=== PATIENT | female | born 1975 | race Caucasian/White ===

== ENCOUNTER → 2018-01-06 15:41 | Outpatient (CLI) | payer BC, SELFPAY ==
--- NOTE | 2018-01-06 | XR_ITS ---
XR knee RT 3V HISTORY: ITS.REASON: PAIN ORDERING PHYSICIAN: Brandy Garcia PATIENT AGE: 42 years COMPARISON: None FINDINGS: No fracture or dislocation. No lytic or blastic change. Normal mineralization. There is minimal spurring along the superior aspect of the patella. Subcortical cystic changes are present at the tibial spines. IMPRESSION: 1. Minimal spurring along the patella 2. Subcortical cystic changes at the interspinous region of the proximal tibia nonspecific
== END ==
PROVIDERS: PCP Nurse Practitioner; Visit Provider Nurse Practitioner
DX: M25.561 Pain in right knee (principal)
CPT/HCPCS: 73562

== ENCOUNTER 2018-02-19 16:00 | Outpatient (RCR) | payer BC, SELFPAY ==
--- NOTE | 2018-01-31 14:52 | HMH.PTOPEV ---
PT Outpatient Evaluation Rehab PT Outpatient Evaluation Start: 01/31/18 14:09 Freq: Status: Active Protocol: Document 01/31/18 14:37 SANDEEPPAMELA (Rec: 01/31/18 14:52 SANDEEPREYNAZOILA [id number]) Electronically Signed By Jordan Calzada, PT 01/31/18 14:37 Outpatient Therapy Subjective History Subjective History Pt is a 42 year old female presenting to outpatient PT with reports of R knee pain starting 01/04/18 after taking a misstep at work. Pain started mildly and progressively got worse. She visited PCP and was prescribed diclofenac that has provided some relief. She most recently experienced a pop in the knee with a closed chain twisting motion and her knee gave out. Comorbidities: increased BMI, diabetes, HTN with PVC's, cholecystectomy. Chief Complaint Pain Stiff Clicks Swelling Weakness Symptom Type Ache Sharp Symptoms Relieved By Rest/Positioning Ice Prescription Meds Symptoms Aggravated By Standing Bending/Stooping Physical Activity Twisting Walking Prior Functional Limitations None Current Functional Limitations Lifting Housework Standing Squatting Recreation Activity Walking Stairs Bending/Stooping Symptom Description Constant but Variable Level of pain today (0-10) 3 Pain scale - at its best (0-10) 2 Pain scale - at its worst (0-10) 7 Hip/Knee Eval Gait Observation General Gait Pattern Observation Antalgic Gait Assistive Device Assistive Devices None / NA Palpation Tenderness right Knee Palpation Finding Tenderness Knee Palpation Overall Comment patellar tendon, medial joint line, lateral distal hamstring , pes anserene MMT left Hip Strength Reason Not Measured WFL Knee Str
== END 2018-02-19 16:01 | disposition home or self-care (01) ==
LOC: PT 16:00
PROVIDERS: Family Provider Family Medicine; PCP Nurse Practitioner; Visit Provider Nurse Practitioner
DX: M23.351 Other meniscus derangements, posterior horn of lateral meniscus, right knee (principal)
CPT/HCPCS: 97010; 97014; 97033; 97035; 97110; 97163; G0283

== ENCOUNTER → 2018-03-06 14:21 | Outpatient (CLI) | payer BC, SELFPAY ==
--- NOTE | 2018-03-06 14:30 | MR_ITS ---
MR knee RT wo/w con HISTORY: Right knee pain, pain and swelling medially. Pain when walking ITS.REASON: INTERNAL DERANGEMENT OF RIGHT KNEE INVOLVING POSTERIOR HORN, PAIN AND SWELLING MEDIALLY ORDERING PHYSICIAN: Brandy Garcia PATIENT AGE: 43 years Comparison: 01/13/2018 TECHNIQUE: Standard multiplanar multiecho sequences are performed without and with gadolinium enhancement. FINDINGS: Images are somewhat limited having to be performed with the body coil secondary to patient's body habitus. The cruciate ligaments and collateral ligaments appear intact. The quadriceps tendon and patellar tendon appears intact. There is some areas of increased signal T2 signal involving the distal aspect of the quadriceps and the mid and distal aspect of the popliteal tendon which could be due to areas of tendinopathy/tendinosis. There is some increased signal involving the posterior horn of the medial meniscus does not appear to communicate to the meniscal particular surface and does not meet strict MRI criteria for meniscal tear. There is mild to moderate lateral patellar subluxation. The patellofemoral ligaments appear intact. There is a moderate sized knee joint effusion mainly in the suprapatellar region. There is a complex cystic lesion which involves the proximal aspect of the tibia centrally. This is iso to hypointense on T1 and hyperintense on T2 with internal septations. This demonstrates contrast enhancement. The lesion is fairly well circumscribed however the superior aspect of the lesion protrudes into the knee joint on the cortex of the proximal tibia. This lesion measures 2.8 cm transverse, 2.4 cm AP, and 2.2 cm cephalad to caudad. The superior extension involves the tibial spine region and posterior to the tibial spine projecting into the knee joint between the tibial spines and the tibial insertion of the posterior cruciate ligament. IMPRESSION: 1. 2.8 x 2.4 x 2.2 cm lytic lesion of the proximal tibia centrally with extension superiorly into the knee joint. This is fairly well-circumscribed with well-defined margins inferiorly and demonstrates contrast enhancement. There are some internal septations. 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 Differential diagnosis would include infection, geode, chondrosarcoma or aneurysmal bone cyst or metastatic lesion. Orthopedic consult recommended 2. Lateral patellar subluxation with knee joint effusion. No internal derangement
--- NOTE | 2018-03-06 16:06 | HMH.ITSHM ---
LISINOPRIL BISOPROLOL METFORMIN LEXAPRO TRISPRINTEC
== END ==
PROVIDERS: Family Provider Family Medicine; PCP Nurse Practitioner; Visit Provider Nurse Practitioner
DX: M23.351 Other meniscus derangements, posterior horn of lateral meniscus, right knee (principal)
CPT/HCPCS: 73723; A9576

== ENCOUNTER 2018-11-14 13:17 | Observation (INO) ==
--- NOTE | 2018-11-14 13:33 | Emergency Department Note ---
ED Disposition Clinical Impression: Pulmonary emboli Qualifiers: Pulmonary embolism type: unspecified Chronicity: acute Acute cor pulmonale presence: with acute cor pulmonale Qualified Code(s): I26.09 - Other pulmonary embolism with acute cor pulmonale Disposition: Admitted As Inpatient Condition on Discharge: Good - Critical Care Critical Care Time: No Attestation: On , the high probability of a clinically significant, sudden or life threatening deterioration of the following system(s) required my full and direct attention, intervention and personal management. The time I documented below is in addition to time spent performing reported procedures but includes the following listed in this critical care notation. Medical Decision Making - Medical Records Medical records reviewed: Yes: I reviewed the patient's medical records. - Merrick Inquiry Pt receiving controlled substance: No Vital Signs: 11/14/18 13:23 11/14/18 15:08 11/14/18 15:40 Temperature 98.7 F Temperature Source Oral Pulse Rate [Left Radial] 58 L 68 57 L Respiratory Rate 18 18 18 Blood Pressure [Left Arm] 132/87 106/70 L 106/49 L Blood Pressure Mean [Left Arm] 102 82 68 Blood Pressure Source [Left Arm] Automatic Cuff Automatic Cuff Automatic Cuff Blood Pressure Position [Left Arm] Sitting Sitting 02 Sat by Pulse Oximetry 98 98 98 Oxygen Delivery Method Room Air Room Air Room Air 11/14/18 17:37 Temperature Temperature Source Pulse Rate [Left Radial] 63 Respiratory Rate 18 Blood Pressure [Left Arm] 138/52 L Blood Pressure Mean [Left Arm] 80 Blood Pressure Source [Left Arm] Automatic Cuff Blood Pressure Position [Left Arm] Sitting 02 Sat by Pulse Oximetry 97 Oxygen Delivery Method Room Air - Lab Data Lab results reviewed: Yes: I reviewed the patient's lab results. Lab Results 11/14/18 13:51: WBC 5.7, RBC 4.49, Hgb 12.3, Hct 38.0, MCV 84.6, MCH 27.3, MCHC 32.3, RDW 13.5, Plt Count 235, MPV 7.8, Neut % (Auto) 57.7, Lymph % (Auto) 35.9, [place] % (Auto) 4.8, Eos % (Auto) 1.1, Baso % (Auto) 0.5, Neut # (Auto) 3.3, Lymph # (Auto) 2.0, [place] # (Auto) 0.3, Eos # (Auto) 0.1, Baso # (Auto) 0.0 11/14/18 13:51: Sodium 139, Potassium 4.0, Chloride 103, Carbon Dioxide 27, Anion Gap 13.0, BUN 14, Creatinine 0.80, Estimated Creat Clear 79, Estimated GFR 79, Est GFR ( Amer) 95, Glucose 134 H, Calcium 8.9, Total Bilirubin 0.4, AST 13 L, ALT 19, Alkaline Phosphatase 58, Troponin I < 0.02, Total Protein 7.5, Albumin 3.3 L, Globulin 4.2 H, Albumin/Globulin Ratio 0.8 L 11/14/18 13:51: Serum HCG, Qual Negative 11/14/18 13:51: D-Dimer 2150 H* 11/14/18 13:51: B-Natriuretic Peptide 152 H 11/14/18 13:51: PT 10.0, INR 0.96, APTT 24.3 Result diagrams: 11/14/18 13:51 11/14/18 13:51 Orders (Tests/Meds): ED MEDICATIONS Generic Name Dose Route Start Last Admin Trade Name Freq PRN Reason Stop Dose Admin Heparin Sodium/Dextrose 500 mls @ 26 mls/hr 11/14/18 17:30 11/14/18 17:32 Heparin 25,000 Units In D5w 500ml Premix IV 12/14/18 17:29 26 mls/hr .[id number] BE Administration 1,300 UNITS/HR Discontinued Medications Generic Name Dose Route Start Last Admin Trade Name Freq PRN Reason Stop Dose Admin Enoxaparin Sodium 120 mg 11/14/18 16:48 11/14/18 17:39 Lovenox 120mg/0.8ml Syringe SQ 11/14/18 16:49 Not Given ONCE ONE Heparin Sodium (Porcine) 5,000 unit 11/14/18 16:59 11/14/18 17:31 Heparin Sodium 5,000 Units/Ml Vial IV 11/14/18 17:00 5,000 unit ONCE ONE Administration Heparin Sodium/Dextrose 500 mls @ 20 mls/hr 11/14/18 17:00 11/14/18 17:39 Heparin 25,000 Units In D5w 500ml Premix IV 12/14/18 16:59 Not Given .Q25H BE 1,000 UNITS/HR Sodium Chloride 50 ml 11/14/18 16:22 11/14/18 16:24 Rad-Ns 50ml Vial IV 11/14/18 16:23 50 ml ONCE ONE Administration Sodium Chloride 10 ml 11/14/18 16:22 11/14/18 16:24 Rad-Saline Flush 10ml Syringe IV 11/14/18 16:23 10 ml ONCE ONE Administration - CT Data CT Scan: Chest Time Received: 17:42 (bilateral PE with right heart strain) ED CT Reviewed: Yes: I have viewed the radiologist's interpretation Preliminary Findings: Abnormal - US Data US Images: Lower Extremity ED US Reviewed: Yes: I have viewed radiologist's interpretation Findings Narrative: +dvt right lower extremity - ECG Data Tracing #1 I reviewed this ECG and interpreted as documented below: Normal Sinus Rhythm: Yes (pvc, no stemi) Medical Decision Narrative: admit d/w Dr Talbot, iv heparin protochol w/ pharmacy dosing initiated General Adult HPI - General Stated complaint: ankle swelling, soa Time Seen by Provider: 11/14/18 13:30 Source of Information: Patient - History of Present Illness HPI narrative: mild to mod marshall and edema lower legs for few days with shortness of breath, no pain, no fever, no injury, not dizzy, speech fluent - Related Data Home Medications Medication Instructions Recorded Confirmed Bisoprol/Hydrochlorothiazide 5 mg PO DAILY 01/13/18 11/14/18 [Bisoprolol-Hctz 5-6.25 mg Tab] Escitalopram Oxalate 10 mg PO DAILY 01/13/18 11/14/18 Lisinopril [Lisinopril 5mg Tablet] 5 mg PO DAILY 01/13/18 11/14/18 Metformin HCl [Metformin HCl ER] 750 mg PO DAILY 01/13/18 11/14/18 Norgestimate-Ethinyl Estradiol 1 mg PO DAILY 01/13/18 11/14/18 [Tri-Linyah Tablet] Aspirin [Aspirin 325mg Tab] 325 mg PO DAILY 11/14/18 11/14/18 Cholecalciferol (Vitamin D3) 5,000 unit PO DAILY 11/14/18 11/14/18 [Vitamin D3] Omeprazole [Omeprazole 20mg 20 mg PO DAILY 11/14/18 11/14/18 Capsule] Allergies Allergy/AdvReac Type Severity Reaction Status Date / Time From [facility] Allergy Unknown Uncoded 06/25/17 14:30 [facility] History - Hepatitis A Screen Attestation statement:: This patient has been screened for Hepatitis A risk factors. Medical History: Reports:: Diabetes Mellitus Type 2 - Social History Alcohol Intake: never ROS Obtained: Yes Systems reviewed as appropriate & no additional complaints - Constitutional Constitutional: Denies fever(s) - Eyes Eyes: Denies change in vision - ENT Ears, Nose, Mouth, and Throat: Denies neck pain - Cardiovascular Cardiovascular: Denies chest pain - Respiratory Respiratory: Yes dyspnea on exertion - Gastrointestinal Gastrointestingal: Denies: abdominal pain - Musculoskeletal Musculoskeletal: Denies back pain, Denies neck pain - Integumentary/Breasts Skin/Breast: Denies rash - Neurologic Neurologic: Denies confusion, Denies unsteadiness, Denies dizziness Physical Exam - General General appearance: alert, in no apparent distress - Head Head exam: atraumatic - Eye Eye exam: Present: normal appearance - ENT ENT exam: Present: mucous membranes moist - Neck Neck exam: Present: normal inspection, full ROM - Chest Chest inspection: Present: normal inspection - Respiratory Respiratory exam: Present: normal lung sounds bilaterally - Cardiovascular Cardiovascular exam: Present: regular rate, normal rhythm - Abdominal Exam Abdominal exam: Present: soft. Absent: tenderness - Extremities Exam Extremities exam: Present: pedal edema - Back Exam Back exam: Present: normal inspection - Neurological Exam Neurological exam: Present: alert, oriented X3 - Psychiatric Psychiatric exam: Present: normal affect - Skin Skin exam: Present: warm, dry
[2018-11-14 14:15] LABS: Basophils % 0.5 % (0.1-2.0); Eosinophils # 0.1 K/mm3 (0.0-0.4); Eosinophils % 1.1 % (0.1-12.0); Hemoglobin 12.3 g/dL (12.2-16.2); Lymphocytes % 35.9 % (10-50); Mean Corpuscular HGB Conc 32.3 g/dL (31.8-35.4); Mean Corpuscular Hemoglobin 27.3 pg (27.0-31.2); Mean Corpuscular Volume 84.6 fl (81-99); Mean Platelet Volume 7.8 fl (7.4-10.4); Monocytes # 0.3 K/mm3 (0.1-1.0); Monocytes % 4.8 % (1.7-9.3); Neutrophils # 3.3 K/mm3 (1.8-7.8); Neutrophils % 57.7 % (37.0-80.0); Platelet Count 235 K/mm3 (142-424); Red Blood Count 4.49 M/mm3 (4.20-5.40); Red Cell Distribution Width 13.5 % (11.5-17.5); White Blood Count 5.7 K/mm3 (4.8-10.8)
[2018-11-14 14:21] LABS: Alanine Aminotransferase 19 U/L (12-78); Albumin Level 3.3 gm/dL (3.4-5.0); Albumin/Globulin Ratio 0.8 (1.1-1.8); Alkaline Phosphatase 58 U/L (46-116); Aspartate Amino Transferase 13 U/L (15-37); Bilirubin,Total 0.4 mg/dL (0.2-1.0); Blood Urea Nitrogen 14 mg/dL (7-18); Calcium 8.9 mg/dL (8.5-10.1); Carbon Dioxide 27 mmol/L (21.0-32.0); Chloride 103 mmol/L (98-107); Globulin 4.2 gm/dl (1.3-3.2); Glucose 134 mg/dL (74-106); Sodium 139 mmol/L (136-145); Total Protein,Serum 7.5 gm/dL (6.4-8.2)
--- NOTE | 2018-11-14 14:45 | Non-Invasive Vascular Report ---
"Venous Exam Indications: 729.5 Pain in limb. IMPRESSIONS 1. No evidence of deep or superficial vein thrombosis involving the left lower extremity 2. Moderate deep vein thrombosis involving the right femoral vein and right popliteal vein History: Swelling of the right lower extremity. Edema of the right leg. Risk factors: Hypertension. Obese. Renal disease. 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 She received Lovenox injections for 28 days post op. After this time she was restarted on her oral contraceptives and 325 mg of Aspirin daily. Her right lower extremity has been swelling x 4 days. Patient sent to ER for DVT evaluation. Complete lower extremity venous duplex evaluation. Doppler flow study including spectral analysis, color and deshpande scale imaging. Location: Emergency department. Patient status: Emergency department. CRITICAL FINDINGS - Reported to: - Read back and verified. - 11/14/18 - 14:30 - RLE DVT in POPV, distal SFV Tables: Venous flow and imaging: + + + + |Location |Overall |Flow properties | + + + + |Right common femoral |Patent |Normal phasicity; | | | |spontaneous; normal | | | |augmentation; compressible | + + + + |Right saphenofemoral |Patent |Compressible | |junction | | | + + + + |Right profunda femoral |Patent |Compressible | + + + + |Right femoral |Totally occluded|Noncompressible | + + + + |Right greater saphenous |Patent |Normal phasicity; | | | |spontaneous; normal | | | |augmentation; compressible | + + + + |Right popliteal |Totally occluded|Noncompressible | + + + + |Right posterior tibial |Patent |Compressible | + + + + |Right peroneal |Patent |Compressible | + + + + |Right gastrocnemius |Totally occluded|Noncompressible | + + + + |Right soleal |Totally occluded|Noncompressible | + + + + |Left common femoral |Patent |Normal phasicity; | | | |spontaneous; normal | | | |augmentation; compressible | + + + + |Left saphenofemoral |Patent |Compressible | |junction | | | + + + + |Left profunda femoral |Patent |Compressible | + + + + |Left femoral |Patent |Normal phasicity; | | | |spontaneous; normal | | | |augmentation; compressible | + + + + |Left greater saphenous |Patent |Normal phasicity; | | | |spontaneous; normal | | | |augmentation; compressible | + + + + |Left popliteal |Patent |Normal phasicity; | | | |spontaneous; normal | | | |augmentation; compressible | + + + + |Left posterior tibial |Patent |Compressible | + + + + |Left peroneal |Patent |Compressible | + + + + |Left gastrocnemius |Patent |Compressible | + + + + |Left soleal |Patent |Compressible | + + + + (Report amended ) Electronically signed by: Martin Pablo [id number]"
[2018-11-14 17:17] LABS: Activated Partial Thrombo Time 24.3 seconds (23.6-34.0); INR 0.96 (0.9-1.1)
--- NOTE | 2018-11-15 07:04 | H&P/Discharge Summary ---
General - General Admission date:: 11/14/18 Discharge date: 11/15/18 *Admission Date: 11/14/18 *Chief complaint: Ankle swelling and shortness of breath *History of present illness: 43-year-old female presented to the emergency department yesterday with bilateral ankle swelling right greater than left and a few days of dyspnea on exertion. 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 She subsequently underwent removal of the tumor and was nonweightbearing for 3 months. In September 2018 patient underwent another surgery to remove the rest of the tumor and feel in the bone defect with bone cement. She continued to be nonweightbearing at that time and was on Lovenox for a month which ended in the middle of October 2018. Patient was taking aspirin 325 mg a day. Over the last few days patient had noticed bilateral ankle swelling right greater than left that would not improve with elevation of the feet. She has been using a walker to ambulate and had also noticed that she was getting short of breath with exertion. She contacted her nurse practitioner at the [facility] and was instructed to go to the nearest emergency department for thrombotic work-up. Patient presented to our emergency department for work-up and was found to have right femoral and popliteal deep vein thrombosis as well as right-sided pulmonary embolism. Patient was given Lovenox in the emergency department and admitted to the floor. She was subsequently started on a heparin drip as well. Patient has not had any hypoxia. 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 in September 2018 Other Surgeries: No: Pacemaker Amputation: No Fractures: No - *Social History Educational Level: Attended College Smoking Status: Never smoker Alcohol Intake: never *Occupational Status:: employed Housing: house Household Members: spouse *Travel in the last 8 weeks: None - Psychiatric History Expresses thoughts of harming self/others: None Suicide Plan Description: No Plan Family Hx:: Diabetes, Hypertension Review of Systems - Review of Systems Review of systems:: pertinent systems reviewed and negative unless documented below - *Neurologic Denies confusion, Denies unsteadiness, Denies dizziness Exam Vital signs and Labs for Last 24 Hours: Temp Pulse Resp BP Pulse Ox 98.3 F 70 20 123/76 97 11/15/18 03:36 11/15/18 03:36 11/15/18 03:36 11/15/18 03:36 11/15/18 03:36 Laboratory Results - last 24 hr 11/14/18 13:51: WBC 5.7, RBC 4.49, Hgb 12.3, Hct 38.0, MCV 84.6, MCH 27.3, MCHC 32.3, RDW 13.5, Plt Count 235, MPV 7.8, Neut % (Auto) 57.7, Lymph % (Auto) 35.9, [place] % (Auto) 4.8, Eos % (Auto) 1.1, Baso % (Auto) 0.5, Neut # (Auto) 3.3, Lymph # (Auto) 2.0, [place] # (Auto) 0.3, Eos # (Auto) 0.1, Baso # (Auto) 0.0 11/14/18 13:51: Sodium 139, Potassium 4.0, Chloride 103, Carbon Dioxide 27, Anion Gap 13.0, BUN 14, Creatinine 0.80, Estimated Creat Clear 79, Estimated GFR 79, Est GFR ( Amer) 95, Glucose 134 H, Calcium 8.9, Total Bilirubin 0.4, AST 13 L, ALT 19, Alkaline Phosphatase 58, Troponin I < 0.02, Total Protein 7.5, Albumin 3.3 L, Globulin 4.2 H, Albumin/Globulin Ratio 0.8 L 11/14/18 13:51: Serum HCG, Qual Negative 11/14/18 13:51: D-Dimer 2150 H* 11/14/18 13:51: B-Natriuretic Peptide 152 H 11/14/18 13:51: PT 10.0, INR 0.96, APTT 24.3 11/14/18 21:53: POC Glucose 140 H 11/14/18 23:20: APTT 19.5 L 11/15/18 05:10: APTT 40.4 H D 11/15/18 05:57: POC Glucose 128 H I & O for Last 24 hours: Intake & Output 11/12/18 11/13/18 11/14/18 11/15/18 11:59 11:59 11:59 11:59 Intake Total 782.7 / 782.7 Balance 782.7 / 782.7 Weight 293 lb 3 oz Narrative: Patient is awake and alert sitting up in bed. She is in no distress. Oropharynx is moist and clear. Neck is without jugular venous distention. Lungs are clear to auscultation. Heart has a regular rate and rhythm. Abdomen is obese, soft, nontender, nondistended. Extremities are warm to the touch and there is only trace ankle edema bilaterally. No calf tenderness. Surgical incision is noted over the right medial proximal tibia. Hospital Course Hospital Course: Patient was admitted on heparin and on the morning of November 15 was transitioned to oral Eliquis with bridging via Lovenox. Patient was monitored and kept until the evening of the to receive a second dose of Lovenox. After her second dose of Lovenox on November 15 she was discharged home she will return on the morning of November 16 for a final dose of Lovenox a dose of 1 mg/kg subcu while transitioning to Eliquis. Patient will follow-up in the office on Saturday Results Labs on day of discharge: Labs from last 24 hours 11/15/18 11/15/18 11/14/18 05:57 05:10 23:20 WBC RBC Hgb Hct MCV MCH MCHC RDW Plt Count MPV Neut % (Auto) Lymph % (Auto) [place] % (Auto) Eos % (Auto) Baso % (Auto) Neut # (Auto) Lymph # (Auto) [place] # (Auto) Eos # (Auto) Baso # (Auto) PT INR APTT 40.4 H D 19.5 L D-Dimer Sodium Potassium Chloride Carbon Dioxide Anion Gap BUN Creatinine Estimated Creat Clear Estimated GFR Est GFR ( Amer) Glucose POC Glucose 128 H Calcium Total Bilirubin AST ALT Alkaline Phosphatase Troponin I B-Natriuretic Peptide Total Protein Albumin Globulin Albumin/Globulin Ratio Serum HCG, Qual 11/14/18 11/14/18 11/14/18 21:53 13:51 13:51 WBC RBC Hgb Hct MCV MCH MCHC RDW Plt Count MPV Neut % (Auto) Lymph % (Auto) [place] % (Auto) Eos % (Auto) Baso % (Auto) Neut # (Auto) Lymph # (Auto) [place] # (Auto) Eos # (Auto) Baso # (Auto) PT 10.0 INR 0.96 APTT 24.3 D-Dimer Sodium Potassium Chloride Carbon Dioxide Anion Gap BUN Creatinine Estimated Creat Clear Estimated GFR Est GFR ( Amer) Glucose POC Glucose 140 H Calcium Total Bilirubin AST ALT Alkaline Phosphatase Troponin I B-Natriuretic Peptide 152 H Total Protein Albumin Globulin Albumin/Globulin Ratio Serum HCG, Qual 11/14/18 11/14/18 11/14/18 13:51 13:51 13:51 WBC RBC Hgb Hct MCV MCH MCHC RDW Plt Count MPV Neut % (Auto) Lymph % (Auto) [place] % (Auto) Eos % (Auto) Baso % (Auto) Neut # (Auto) Lymph # (Auto) [place] # (Auto) Eos # (Auto) Baso # (Auto) PT INR APTT D-Dimer 2150 H* Sodium 139 Potassium 4.0 Chloride 103 Carbon Dioxide 27 Anion Gap 13.0 BUN 14 Creatinine 0.80 Estimated Creat Clear 79 Estimated GFR 79 Est GFR ( Amer) 95 Glucose 134 H POC Glucose Calcium 8.9 Total Bilirubin 0.4 AST 13 L ALT 19 Alkaline Phosphatase 58 Troponin I < 0.02 B-Natriuretic Peptide Total Protein 7.5 Albumin 3.3 L Globulin 4.2 H Albumin/Globulin Ratio 0.8 L Serum HCG, Qual Negative 11/14/18 13:51 WBC 5.7 RBC 4.49 Hgb 12.3 Hct 38.0 MCV 84.6 MCH 27.3 MCHC 32.3 RDW 13.5 Plt Count 235 MPV 7.8 Neut % (Auto) 57.7 Lymph % (Auto) 35.9 [place] % (Auto) 4.8 Eos % (Auto) 1.1 Baso % (Auto) 0.5 Neut # (Auto) 3.3 Lymph # (Auto) 2.0 [place] # (Auto) 0.3 Eos # (Auto) 0.1 Baso # (Auto) 0.0 PT INR APTT D-Dimer Sodium Potassium Chloride Carbon Dioxide Anion Gap BUN Creatinine Estimated Creat Clear Estimated GFR Est GFR ( Amer) Glucose POC Glucose Calcium Total Bilirubin AST ALT Alkaline Phosphatase Troponin I B-Natriuretic Peptide Total Protein Albumin Globulin Albumin/Globulin Ratio Serum HCG, Qual DS: Diagnosis - Discharge Diagnosis (1) Deep vein thrombosis Status: Acute (2) Pulmonary emboli Status: Acute Discharge Medications - Medications for Discharge Home Medication List at Discharge: No Action Metformin HCl [Metformin HCl ER] 750 mg PO DAILY Lisinopril [Lisinopril 5mg Tablet] 5 mg PO DAILY Escitalopram Oxalate 10 mg PO DAILY Bisoprol/Hydrochlorothiazide [Bisoprolol-Hctz 5-6.25 mg Tab] 5 mg PO DAILY Aspirin [Aspirin 325mg Tab] 325 mg PO DAILY Ca/D3/Mag Ox/Zinc/Drain Cleaner Plumber/Sampson/Bor [Calcium 600-D3 Plus Caplet] 1 each PO DAILY Norgestimate-Ethinyl Estradiol [Tri-Linyah Tablet] 1 mg PO DAILY Cholecalciferol (Vitamin D3) [Vitamin D3] 5,000 unit PO DAILY Omeprazole [Omeprazole 20mg Capsule] 20 mg PO DAILY Disposition Disposition: Home, Self-Care
--- NOTE | 2018-11-15 11:17 | Pharmacy Consult Notes ---
[facility] Pharmacy Heparin Dosing - Demographic Data Admission date:: 11/14/18 Date: 11/15/18 Time: 11:13 Allergies/Adverse Reactions: Allergies Allergy/AdvReac Type Severity Reaction Status Date / Time hydrocodone [From Lortab] AdvReac Unknown Verified 11/15/18 11:05 allergy reaction Height: 1.63 m Weight: 133 kg - Indication Medication therapy:: Heparin Patient Problems: Current Active Problems (Updated 11/15/18 @ 07:08 by Ryan Gallo MD) Pulmonary emboli (Acute) Deep vein thrombosis (Acute) CVA?: No Bleeding problem?: No Kidney disease?: No NM?: No Desired PTT range:: 60-80 seconds - Labs Anticoagulation Lab Results:: 11/14/18 13:51 Hgb 12.3 Hct 38.0 Plt Count 235 - Monitoring Dose Monitor 1 Date: 11/14/18 Time: 13:51 PTT Result:: 24.3 Infusion Rate:: 26 MLS/GP=6070 UNITS/HR Comment:: BASELINE PTT RIK=406 HEPARIN BOLUS 5000 UNITS GIVEN Dose Monitor 2 Date: 11/14/18 Time: 23:20 PTT Result:: 19.5 Infusion Rate:: 32 MLS/HR = 1600 UNITS/HR Comment:: HEPARIN BOLUS 5000 UNITS GIVEN Dose Monitor 3 Date: 11/15/18 Time: 05:10 PTT Result:: 40.4 Infusion Rate:: 35 MLS/HR = 1750 UNITS/HR Comment:: HEPARIN BOLUS 5000 UNITS ORDERED DRIP DC'D BY DR GALLO. CHANGED TO LOVENOX AND ELIQUIS - Core Measures Is INR > or = 2 at discharge?: No Most Recent Labs:: Laboratory Results - last 24 hr 11/14/18 13:51: WBC 5.7, RBC 4.49, Hgb 12.3, Hct 38.0, MCV 84.6, MCH 27.3, MCHC 32.3, RDW 13.5, Plt Count 235, MPV 7.8, Neut % (Auto) 57.7, Lymph % (Auto) 35.9, Ida % (Auto) 4.8, Eos % (Auto) 1.1, Baso % (Auto) 0.5, Neut # (Auto) 3.3, Lymph # (Auto) 2.0, Ida # (Auto) 0.3, Eos # (Auto) 0.1, Baso # (Auto) 0.0 11/14/18 13:51: Sodium 139, Potassium 4.0, Chloride 103, Carbon Dioxide 27, Anion Gap 13.0, BUN 14, Creatinine 0.80, Estimated Creat Clear 79, Estimated GFR 79, Est GFR ( Amer) 95, Glucose 134 H, Calcium 8.9, Total Bilirubin 0.4, AST 13 L, ALT 19, Alkaline Phosphatase 58, Troponin I < 0.02, Total Protein 7.5, Albumin 3.3 L, Globulin 4.2 H, Albumin/Globulin Ratio 0.8 L 11/14/18 13:51: Serum HCG, Qual Negative 11/14/18 13:51: D-Dimer 2150 H* 11/14/18 13:51: B-Natriuretic Peptide 152 H 11/14/18 13:51: PT 10.0, INR 0.96, APTT 24.3 11/14/18 21:53: POC Glucose 140 H 11/14/18 23:20: APTT 19.5 L 11/15/18 05:10: APTT 40.4 H D 11/15/18 05:57: POC Glucose 128 H If INR was < than 2.0 why was therapy stopped?: PATIENT SENT HOME BRIDGING WITH LOVENOX AND ELIQUIS Were Heparin and Warfarin started on the same day?: No If not, why?: ON ELIQUIS AND LOVENOX, NOT WARFARIN
--- NOTE | 2018-11-15 11:19 | Pharmacy Consult Notes ---
[facility] Pharmacy VTE Monitoring - Patient Demographics Admission date: 11/14/18 Report Date: 11/15/18 Time: 11:18 Allergies/Adverse Reactions: Patient Allergies hydrocodone [From Lortab] Adverse Reaction (Verified 11/15/18 11:05) Unknown allergy reaction Height: 1.63 m Weight: 133 kg Patient Problems: Current Active Problems (Updated 11/15/18 @ 07:08 by Ryan Ogden MD) Pulmonary emboli (Acute) Deep vein thrombosis (Acute) - VTE Risk Labs: VTE Related Lab Results Hgb 12.3 g/dL (12.2-16.2) 11/14/18 13:51 Hct 38.0 % (37.0-47.0) 11/14/18 13:51 Plt Count 235 K/mm3 (142-424) 11/14/18 13:51 PT 10.0 seconds (9.4-11.8) 11/14/18 13:51 INR 0.96 (0.9-1.1) 11/14/18 13:51 APTT 40.4 seconds (23.6-34.0) H D 11/15/18 05:10 BUN 14 mg/dL (7-18) 11/14/18 13:51 Creatinine 0.80 mg/dL (0.55-1.02) 11/14/18 13:51 Estimated Creat Clear 79 mL/min (50-200) 11/14/18 13:51 VTE Score: 5 VTE Risk Level: Low Risk - Prophylaxis VTE Prophylaxis Ordered?: Yes Types of VTE Prophylaxis: Pharmacological Pharmacologic Type: Heparin - VTE Diagnosis Confirmed Treatment or plan recommended: Add Enoxaparin (AND ELIQUIS, HEPARIN DRIP STOPPED) Warfarin counseling provided if indicated?: No (ON ELIQUIS) Bridge therapy started inpt?: Yes (LOVENOX AND ELIQUIS)
== END 2018-11-15 20:07 | disposition home or self-care (01) ==
LOC: ER 13:17 → 2ND 17:17 → INTOOBSV 18:03 → 2ND 18:04
PROVIDERS: ADMIT Internal Medicine Adolescent Medicine; ATTEND Family Medicine
DX: I82.419 Acute embolism and thrombosis of unspecified femoral vein; I82.439 Acute embolism and thrombosis of unspecified popliteal vein; I26.09 Other pulmonary embolism with acute cor pulmonale; E11.9 Type 2 diabetes mellitus without complications; M25.473 Effusion, unspecified ankle; Z88.6 Allergy status to analgesic agent; I10 Essential (primary) hypertension; R06.02 Shortness of breath
CPT/HCPCS: 36415; 71010; 71045; 71275; 80053; 82962; 83880; 84484; 84703; 85025; 85378; 85610; 85730; 93005; 93970; 96365; 96375; 99284; G0378

== ENCOUNTER 2018-11-16 08:06 | Outpatient (CLI) | payer BC, SELFPAY ==
[2018-11-16 08:29] VITALS: BMI 503247.0
[2018-11-16 08:33] VITALS: BP 136/85; PULSE 63; RESP 16; O2SAT 98
== END 2018-11-16 08:40 | disposition home or self-care (01) ==
LOC: INF 08:07
PROVIDERS: PCP Family Medicine; Visit Provider Family Medicine
DX: I82.409 Acute embolism and thrombosis of unspecified deep veins of unspecified lower extremity (principal); I26.99 Other pulmonary embolism without acute cor pulmonale
CPT/HCPCS: 96372

== ENCOUNTER 2019-03-12 16:00 | Outpatient (RCR) | payer BC, SELFPAY | END 2019-03-12 16:05 | disposition home or self-care (01) | LOC: PT 16:00 | PROVIDERS: Visit Provider Orthopaedic Surgery | DX: M79.89 Other specified soft tissue disorders (principal) | CPT/HCPCS: 97010; 97014; 97033; 97035; 97110; 97163; 97164; G0283 ==

== ENCOUNTER → 2020-09-28 11:11 | Outpatient (CLI) | payer OTHER, SELFPAY | PROVIDERS: PCP Family Medicine; Visit Provider Family Medicine | DX: Z20.822 Contact with and (suspected) exposure to COVID-19 (principal) | CPT/HCPCS: U0003 ==

== ENCOUNTER 2020-12-25 11:14 | Emergency (ER) | payer OTHER, SELFPAY ==
[2020-12-25 11:27] VITALS: BP 115/52; PULSE 64; RESP 18; TEMP 36.8; O2SAT 98; BMI 55.0
--- NOTE | 2020-12-25 11:45 | HMH.EDUTC ---
[facility] [place]position Clinical Impression: Strep throat Otitis media Qualifiers: Otitis media type: suppurative Chronicity: acute Laterality: right Recurrence: non-recurrent Spontaneous tympanic membrane rupture: without spontaneous rupture Qualified Code(s): H66.001 - Acute suppurative otitis media without spontaneous rupture of ear drum, right ear Disposition: Home, Self-Care Condition on Discharge: Good Instructions: DI for Strep Throat, Middle Ear Infection Additional Instructions: Start antibiotics today be sure to take it as ordered with the full length of time although you should start feeling better in 24-48 hours. Change toothbrush and toothpaste 24-48 hours after starting antibiotics Tylenol or Motrin as needed for fever or pain Encourage fluids, water, Gatorade, Powerade, try cold fluids, popsicles, ice cream will make it feel better You are contagious for 24 hours. Avoid kissing anyone, no eating or drinking after anyone. You are contagious. Follow-up the ER for new or worsening symptoms or no noticeable improvement over the next 24-48 hours. Follow-up with PCP this week. Prescriptions: Amoxicillin [Amoxicillin 500mg Tab] 500 mg PO BID 10 Days #20 tab Prescription Printed Referrals: Ryan Ogden MD [Primary Care Provider] - Time of Disposition: 11:48 Medical Decision Making - Merrick Inquiry Pt receiving controlled substance: No Vital Signs: 12/25/20 11:27 Temperature 98.2 F Temperature Source Oral Pulse Rate [Left] 64 Respiratory Rate 18 Blood Pressure [Right Arm] 115/52 L Blood Pressure Mean [Right Arm] 73 02 Sat by Pulse Oximetry 98 [facility] HPI - General Chief complaint: Urgent Treatment Center Stated complaint: sore throat, rt ear pain Time Seen by Provider: 12/25/20 11:45 Mode of Arrival: Ambulatory Source of Information: Patient Limitations: No Limitations Description of Symptoms (Recalled from Triage Doc. by RN): pt c/o a sore throat and R ear ache ongoing for 3 days. HEENT Symptoms (Recalled from RN notes): Yes (sore throat and R ear ache) Resp Symptoms (Recalled from RN notes): No Skin Symptoms (Recalled from RN notes): No MS Symptoms (Recalled from RN notes): No Functional Status (Recalled from RN notes): na - History of Present Illness Provider Complaint: 45yr old fmeale presents for sore throat and rt ear pain for 3 days - Related Data Home Medications Medication Instructions Recorded Confirmed Bisoprolol/Hydrochlorothiazide 5 mg PO DAILY 01/13/18 11/14/18 [Bisoprolol-Hctz 5-6.25 mg Tab] Escitalopram Oxalate 10 mg PO DAILY 01/13/18 11/14/18 Metformin HCl [Metformin HCl ER] 750 mg PO DAILY 01/13/18 11/14/18 lisinopriL [Lisinopril 5mg 5 mg PO DAILY 01/13/18 11/14/18 Tablet] Ca/D3/Mag Ox/Zinc/Hiv Counselor/Sampson/Bor 1 each PO DAILY 11/14/18 11/14/18 [Calcium 600-D3 Plus Caplet] Cholecalciferol (Vitamin D3) 5,000 unit PO DAILY 11/14/18 11/14/18 [Vitamin D3] Omeprazole [Omeprazole 20mg 20 mg PO DAILY 11/14/18 11/14/18 Capsule] Previous Rx's Medication Instructions Recorded Apixaban [Eliquis 5mg tab] 5 mg PO BID #60 tab.ds.pk 11/15/18 Amoxicillin [Amoxicillin 500mg Tab] 500 mg PO BID 10 Days #20 tab 12/25/20 Allergies Allergy/AdvReac Type Severity Reaction Status Date / Time hydrocodone [From Lortab] AdvReac Unknown Verified 11/15/18 11:05 allergy reaction - Worker's Comp Is this a Worker's Comp case?: No H History - Hepatitis A Screen Drug use history?: No High risk sexual behaviors?: No History of sexually transmitted infection?: No Currently employed?: No Childcare worker?: No Do you have indoor plumbing?: Yes Do you have electricity?: Yes Attestation statement:: This patient has been screened for Hepatitis A risk factors. I have reviewed the patient's past medical history: Yes Medical History: Reports:: Diabetes Mellitus Type 2, Hypertension (PVC) Denies:: Cancer, Diabetes Mellitus Type 1, Internal Pacemaker,
[2020-12-25 11:46] LABS: UTC Strep Screen (Rapid) Positive (Negative)
[2020-12-25 11:47] VITALS: BP 115/52; PULSE 54; RESP 18; TEMP 36.8
== END 2020-12-25 11:51 | disposition home or self-care (01) ==
PROVIDERS: Emergency Provider Nurse Practitioner Family; PCP Family Medicine
DX: J02.0 Streptococcal pharyngitis (principal); H66.001 Acute suppurative otitis media without spontaneous rupture of ear drum, right ear; I10 Essential (primary) hypertension; E11.9 Type 2 diabetes mellitus without complications; Z79.899 Other long term (current) drug therapy
CPT/HCPCS: 87880; 99202; G0463

== ENCOUNTER 2021-03-15 12:48 | Emergency (ER) | payer OTHER, SELFPAY ==
[2021-03-15 13:07] VITALS: BP 141/96; PULSE 63; RESP 19; TEMP 36.8; O2SAT 99; BMI 55.7
--- NOTE | 2021-03-15 13:36 | HMH.EDUTC ---
[facility] [place] Disposition Clinical Impression: Exposure to COVID-19 virus Disposition: Home, Self-Care Condition on Discharge: Good Instructions: DI for COVID-19 (Suspected or Confirmed ), Preventing the Spread of Coronavirus Discharge Instructions Additional Instructions: *Monitor Temp, Over the counter Motrin or Tylenol as directed/as needed Tylenol every 4 hours and Motrin every 6 hours (as long as your family doctor has told you that you can take it) for fever or pain. and straight to ER if unable to lower temp less than 101.0 after medication given Follow up IMMEDIATELY for new or worsening symptoms or no Noticeable improvement over the next 48-72 hours. 911 for difficulty breathing or swallowing You were tested for today for COVID19 your test result should be back in the next 24-48 hours, you was given instructions on how to log on the [facility] portal for your results. If you do not have internet or access you may call the [facility]. You was given a handout with instructions for Self Quarantine and Self isolation for while you wait on test results and what to do if they are positive If you are positive the Health Dept will be contacting you also Make sure to take your Vitamins Vit. C Vit D and Zinc if you can take them Referrals: Ryan Ogden MD [Primary Care Provider] - As needed Forms: Work/School Release Time of Disposition: 13:37 Medical Decision Making - Merrick Inquiry Pt receiving controlled substance: No Merrick was queried for this patient: No Vital Signs: 03/15/21 13:07 Temperature 98.3 F Temperature Source Oral Pulse Rate [Right] 63 Respiratory Rate 19 Blood Pressure [Right Arm] 141/96 H Blood Pressure Mean [Right Arm] 111 02 Sat by Pulse Oximetry 99 Oxygen Delivery Method Room Air Orders (Tests/Meds): ORDERS Category Date Time Status Covid-19 Nasal PCR ([facility]) Routine Lab 03/15/21 13:00 Received [facility] [place] HPI - General Stated complaint: covid exposure Time Seen by Provider: 03/15/21 13:36 Description of Symptoms (Recalled from Triage Doc. by RN): COVID TEST DUE TO CLOSE CONTACT, DENIES SYMPTOMS HEENT Symptoms (Recalled from RN notes): No Resp Symptoms (Recalled from RN notes): No Skin Symptoms (Recalled from RN notes): No MS Symptoms (Recalled from RN notes): No Functional Status (Recalled from RN notes): WNL - History of Present Illness Provider Complaint: Patient states that she was around someone that tested positive for COVID states that she is not having any symptoms but work was having her get tested - Related Data Home Medications Medication Instructions Recorded Confirmed Bisoprolol/Hydrochlorothiazide 5 mg PO DAILY 01/13/18 11/14/18 [Bisoprolol-Hctz 5-6.25 mg Tab] Escitalopram Oxalate 10 mg PO DAILY 01/13/18 11/14/18 Metformin HCl [Metformin HCl ER] 750 mg PO DAILY 01/13/18 11/14/18 lisinopriL [Lisinopril 5mg 5 mg PO DAILY 01/13/18 11/14/18 Tablet] Ca/D3/Mag Ox/Zinc/Insurance Sales Specialist/Sampson/Bor 1 each PO DAILY 11/14/18 11/14/18 [Calcium 600-D3 Plus Caplet] Cholecalciferol (Vitamin D3) 5,000 unit PO DAILY 11/14/18 11/14/18 [Vitamin D3] Omeprazole [Omeprazole 20mg 20 mg PO DAILY 11/14/18 11/14/18 Capsule] Previous Rx's Medication Instructions Recorded Apixaban [Eliquis 5mg tab] 5 mg PO BID #60 tab.ds.pk 11/15/18 Amoxicillin [Amoxicillin 500mg Tab] 500 mg PO BID 10 Days #20 tab 12/25/20 Allergies Allergy/AdvReac Type Severity Reaction Status Date / Time hydrocodone [From Lortab] AdvReac Unknown Verified 03/15/21 13:12 allergy reaction - Worker's Comp Is this a Worker's Comp case?: No [facility] History - Hepatitis A Screen Drug use history?: No High risk sexual behaviors?: No History of sexually transmitted infection?: No Currently employed?: No Childcare worker?: No Do you have indoor plumbing?: Yes Do you have electricity?: Yes Attestation statement:: This patient has been screened for Hepatitis A risk factors. I have reviewed t
[2021-03-15 13:58] VITALS: BP 141/96; PULSE 63; RESP 19; TEMP 36.8; O2SAT 99
== END 2021-03-15 13:59 | disposition home or self-care (01) ==
PROVIDERS: Emergency Provider Nurse Practitioner; PCP Family Medicine
DX: Z20.822 Contact with and (suspected) exposure to COVID-19 (principal)
CPT/HCPCS: 99202; G0463; U0003

== ENCOUNTER → 2021-07-21 08:47 | Outpatient (CLI) | payer OTHER, SELFPAY | PROVIDERS: PCP Family Medicine; Visit Provider Nurse Practitioner | DX: Z20.822 Contact with and (suspected) exposure to COVID-19 (principal) | CPT/HCPCS: C9803; U0003; U0005 ==

== ENCOUNTER → 2021-07-28 17:50 | Outpatient (CLI) | payer OTHER, SELFPAY | PROVIDERS: Visit Provider Nurse Practitioner | DX: Z20.822 Contact with and (suspected) exposure to COVID-19 (principal) | CPT/HCPCS: C9803; U0003; U0005 ==

== ENCOUNTER → 2023-02-06 16:02 | Outpatient (CLI) | payer OTHER, SELFPAY ==
--- NOTE | 2023-02-06 16:05 | XR_ITS ---
FINAL REPORT CLINICAL HISTORY: ACUTE BILATERAL BACK PAIN FINDINGS: TWO-VIEW CHEST The heart size is normal. The mediastinum is normal. There is mild bibasilar atelectasis or scar. There is no pneumothorax. IMPRESSION: Bibasilar atelectasis or scar. Reviewed, Interpreted and Dictated by Sam Fernandez III, MD Transcribed by Carolina Cotto Authenticated and [facility]
== END ==
LOC: RAD 16:02
PROVIDERS: PCP Family Medicine; Visit Provider Family Medicine
DX: M54.9 Dorsalgia, unspecified (principal)
CPT/HCPCS: 71046

== ENCOUNTER 2024-02-03 07:14 | Emergency (ER) | payer OTHER, SELFPAY ==
[2024-02-03] VITALS (8 sets, daily range): BP systolic 125–149; BP diastolic 55–85; PULSE 65–75; RESP 18–20; TEMP 36.8; O2SAT 95–98; BMI 52.3
--- NOTE | 2024-02-03 07:26 | PC.NURSE ---
DR MITCHELL AT BEDSIDE
--- NOTE | 2024-02-03 07:33 | CT_ITS ---
FINAL REPORT TECHNIQUE: Thin section axial images were obtained from skull base to vertex without contrast. Coronal reconstruction images were obtained from the axial data. Exam was performed using dose reduction technique. CLINICAL HISTORY: fall, hit opcciput, on eliquis FINDINGS: There is no mass effect or midline shift. There is no hydrocephalus. There is no intracranial hemorrhage. The posterior fossa is without acute abnormality. The basilar cisterns are preserved. The soft tissues are without acute abnormality. No acute osseous abnormality is identified. IMPRESSION: No acute intracranial abnormality. Reviewed, Interpreted and Dictated by Maria Fernanda Clifford MD Transcribed by Kesha Cruz Authenticated and [facility]
--- NOTE | 2024-02-03 07:45 | PC.NURSE ---
PT JONATHAN CT
--- NOTE | 2024-02-03 07:56 | ED_ITS ---
Discharge Plan Disposition Patient Disposition: Home, Self-Care Chief Complaint: Epistaxis Prescriptions Prescriptions: No Action bisoprolol-hydrochlorothiazide 5-6.25M Tablet 5 mg PO DAILY lisinopril 5 MG Tablet 5 mg PO DAILY escitalopram oxalate 10 MG Tablet 10 mg PO DAILY metformin 750 MG Tab.Er.24h 750 mg PO DAILY amoxicillin 500 MG tablet 500 mg PO BID 10 Days Qty: 20 0RF omeprazole 20 MG capsule,delayed release(DR/EC) 20 mg PO DAILY cholecalciferol (vitamin D3) 5,000 UNIT capsule 5,000 unit PO DAILY Ca-D3-mag wg-nwwt-zqa-bill-bor 1 EACH tablet 1 each PO DAILY apixaban 5 MG tablets,dose pack 5 mg PO BID Qty: 60 5RF Referrals Follow up/Referrals: Brandy Garcia APRN [Primary Care Provider] - See instructions Activity Restrictions/Add. Instructions Additional Instructions/Restrictions: If you start bleeding, as discussed, blood clots out, oxymetazoline bilateral nostrils, plug and pray 30 minutes. After removing the nasal clamp, if you continue to bleed, repeat this for approximately 60 minutes. If you continue to bleed, return to the emergency department for further evaluation versus trying longer clamp trial. Call your family doctor to establish care for this visit to the emergency department and schedule follow-up as needed to ensure improvement. If you have any worsening of your condition or any other concerning signs or symptoms, return to the emergency department or your primary care doctor for further evaluation. Clinical Impressions Clinical Impression: Acute anterior epistaxis Instructions Patient Instructions: DI for Nosebleed Print Language Print Language: Bengali Discharge ED Provider: Erick Chapa General Adult HPI General Chief complaint: Epistaxis Stated complaint: AO 01/26 hit head headache bleeding nose Time Seen by Provider: 02/03/24 07:23 Mode of Arrival: Ambulatory Source of Information: Patient Limitations: No Limitations Description of Symptoms (Recalled from ER Triage Doc. by RN): pt to ed c/o left sided nose bleed. pt states last week while on vacation she missed a porch swing and it came back to hit her in the head. pt states since then she has had a headache, and this morning she went to blow her nose and it started bleeding. pt reports she was unable to control the bleeding so she presented to the ed. pt presents with a tampon to the left nare. History of Present Illness HPI narrative: Please note that above description of symptoms, in this electronic medical record under categorization of recalled from ER triage doctor by RN are reflective of an initial nursing assessment, however, is not reflective of my full history and physical exam that was personally taken and clarified. Consequentially, this preceding description of symptoms, which may include the patient's categorized chief complaint in the EMR, do not reflect my personal clinical impression, and the ultimate description of history of present illness and patient stated complaints should be deferred to this section of the note. Unless stated otherwise or congruent with this section of the note, additional signs, symptoms, or incongruence should be interpreted as inaccurate with my clinical impression. Related Data Home Medications ?Medication ?Instructions ?Recorded ?Confirmed bisoprolol 5 5 mg PO DAILY Hypertension 01/13/18 11/14/18 mg-hydrochlorothiazide 6.25 mg tablet escitalopram oxalate 10 mg tablet 10 mg PO DAILY Anxiety 01/13/18 11/14/18 lisinopril 5 mg tablet 5 mg PO DAILY Hypertension 01/13/18 11/14/18 metformin 750 mg tablet,extended 750 mg PO DAILY Diabetes 01/13/18 11/14/18 release 24 hr Ca 600 mg-D3 20 mcg-mag oxide 50 1 each PO DAILY Bone loss 11/14/18 11/14/18 ao-Pm-khtpsc-manganese-boron tablet cholecalciferol (vitamin D3) 125 5,000 unit PO DAILY Supplement 11/14/18 11/14/18 mcg (5,000 unit) capsule omeprazole 20 mg capsule,delayed 20 mg PO DAILY stomach 11/14/18 11/14/18 release Previous Rx's ?Medication ?Instructions ?Recorded apixaban 5 mg (74 tabs) tablets in 5 mg PO BID ##60 11/15/18 a dose pack amoxicillin 500 mg tablet 500 mg PO BID 10 days #20 tabs 12/25/20 Allergies Allergy/AdvReac Type Severity Reaction Status Date / Time hydrocodone [From Lortab] AdvReac Unknown Verified 03/15/21 13:12 allergy reaction [facility] Disclaimer: The information contained in this section may have been updated after the patient was seen, as this information can be updated by other users. 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 No blood running down the back of the throat) Neck Neck exam: Present normal inspection, full ROM and trachea midline Respiratory Respiratory exam: Absent respiratory distress, wheezes, stridor, accessory muscle use or prolonged expiratory phase Cardiovascular Cardiovascular exam: Present other (Pulses equal symmetric in upper and lower extremities) Abdominal Exam Abdominal exam: Present soft; Absent distention, tenderness or pulsatile mass Extremities Exam Extremities exam: Absent edema Neurological Exam Neurological exam: Present alert, oriented X3 and CN II-XII intact; Absent motor sensory deficit Skin Skin exam: Present warm and dry; Absent diaphoresis or erythema Medical Decision Making Medical Records Medical records reviewed: Yes I reviewed the patient's medical records. Merrick Inquiry Pt receiving controlled substance: No Merrick was queried for this patient: No Vital Signs: 02/03/24 07:20 02/03/24 07:26 02/03/24 07:31 Temperature 98.3 F Temperature Source Oral Pulse Rate 75 70 Pulse Rate [Left Radial] 71 Respiratory Rate 20 Blood Pressure 148/79 H 149/85 H Blood Pressure [Right Arm] 148/79 H Blood Pressure Mean Blood Pressure Mean [Right Arm] 102 02 Sat by Pulse Oximetry 95 98 97 Oxygen Delivery Method Room Air Room Air Room Air 02/03/24 08:01 02/03/24 08:30 02/03/24 09:01 Temperature Temperature Source Pulse Rate 72 72 69 Pulse Rate [Left Radial] Respiratory Rate Blood Pressure 129/74 141/72 H 132/75 Blood Pressure [Right Arm] Blood Pressure Mean 94 Blood Pressure Mean [Right Arm] 02 Sat by Pulse Oximetry 96 97 96 Oxygen Delivery Method Room Air Room Air 02/03/24 09:31 Temperature Temperature Source Pulse Rate 68 Pulse Rate [Left Radial] Respiratory Rate Blood Pressure 125/55 L Blood Pressure [Right Arm] Blood Pressure Mean 96 Blood Pressure Mean [Right Arm] 02 Sat by Pulse Oximetry 96 Oxygen Delivery Method Orders (Tests/Meds): ED MEDICATIONS Discontinued Medications Generic Name Dose Route Start Last Admin Trade Name Freq PRN Reason Stop Dose Admin Ondansetron HCl 4 mg 02/03/24 08:22 02/03/24 08:31 Ondansetron 4mg Odt SL 02/03/24 08:23 4 mg ONCE ONE Administration Oxymetazoline HCl 1 ml 02/03/24 08:41 02/03/24 09:00 Oxymetazoline Nasal [place] 0.05% 15ml NS 02/03/24 08:42 1 ml ONCE ONE Administration ORDERS Category Date Time Status CT head/brain wo con Stat Cat Scan 02/03/24 07:33 Taken Medical Decision Narrative: 48-year-old female history of DVT and PE on Eliquis, hypertension presenting with headache and nosebleed. Patient states that headache started a couple days prior to this when she fell off of a porch swing, landed on her bottom, fortunately came forward hit her head and caused positive LOC for a few seconds. Was not evaluated since that time, states that she has a mild, dull headache since that time. Has not taken anything for the pain. Today, patient states that she woke up, felt congested, blew her nose, had large-volume nosebleed. Tried stopping it with direct pressure and tissues, ultimately ended up putting vaginal tampon in her nose to control bleeding, this helped. Currently hemostatic. Came in out of evaluation for the 2 and concern that may be related. History was obtained via conversation with patient. On arrival, patient hemodynamically stable, alert, oriented x4, appropriate, GCS 15, moving all extremities spontaneously, pupils equal and reactive to light. Full physical exam performed and significant for very well-appearing woman in no a cute distress. She has a vaginal tampon in her left nostril. No evidence of bleeding anteriorly or posteriorly. Mildly hypertensive, nontachycardic, very well-appearing overall and fully conversational, jovial. Differential includes coagulopathy, anterior epistaxis, posterior epistaxis, intracranial hemorrhage, skull fracture, among others. On reevaluation, patient wishing to have nasal/vaginal tampon taken out of her left nare. This was removed. Initially hemostatic. Shortly thereafter, patient started bleeding again. Clots were blown out, patient was given oxymetazoline and nose clip with clamp trial 30 minutes. On reevaluation, patient hemostatic. Patient was observed for approximately 1 hour after oxymetazoline and nose clip to evaluate for rebleeding, necessity for further treatment including nasal packing, and need for admission versus home-going. Patient provided oxymetazoline and clamp while awaiting reevaluation. Because patient at baseline without signs or symptoms of clinical decompensation, deemed appropriate for discharge. Results were relayed to patient who voiced understanding and were agreeable to outpatient management and follow up. I discussed my clinical impression with patient and answered all questions. At this time, the evidence for any other entities in the differential is insufficient to warrant any further testing or ED observation. This was explained as well. Advisory was given that persistent or worsening symptoms require further evaluation. I confirmed the understanding of this discussion. Operations Label Clerk disclaimer Much of this encounter note is an electronic steam and power supervisor spoken language to printed text. Electronic steam and power supervisor of the spoken language may permit errors. Although I have reviewed the note, some errors may still exist. Critical Care Critical Care Time Critical Care Time: No
[2024-02-03] MEDS: ONDANSETRON 4MG ODT 4 MG SL (08:31)
[2024-02-03] MEDS: OXYMETAZOLINE NASAL SPRAY 0.05% 15ML NS (09:00)
--- NOTE | 2024-02-03 09:48 | PC.NURSE ---
DR MITCHELL AT BEDSIDE TO UPDATE PT AND FAMILY
== END 2024-02-03 09:55 | disposition home or self-care (01) ==
PROVIDERS: Emergency Provider Emergency Medicine; PCP Nurse Practitioner
DX: R04.0 Epistaxis (principal)
CPT/HCPCS: 70450; 99284; Q0162

== ENCOUNTER 2024-12-30 07:52 | Emergency (ER) | payer OTHER, SELFPAY ==
[2024-12-30] VITALS (9 sets, daily range): BP systolic 110–155; BP diastolic 67–93; PULSE 56–77; RESP 16–18; TEMP 36.9; O2SAT 95–100; BMI 55.6
--- OUTSIDE RECORDS SUMMARY | 2024-12-30 08:16 | XMS_ITS | Clinical Summary ---
Author Organization [employer] Address [address] [place] [address] Care Team Providers Care Geriatrician Name Role Phone Nathen Pappas MD Primary Care Provider [phone] Allergies Active Allergy Reactions Criticality Noted Date Comments Hydrocodone-Acetaminophen Low 03/31/2018 Other reaction(s): Other Medications omeprazole (PriLOSEC) 20 MG capsuleIndication s:Encounter for general adult medical examination without abnormal findings 1 cap(s) orally once a day Active semaglutide (Rybelsus) 7 mg TabIndications:En counter for general adult medical examination without abnormal findings 12/20/2021 Active escitalopram oxalate (LEXAPRO) 10 MG tabletIndications :Encounter for general adult medical examination without abnormal findings Take 10 mg by mouth daily. Active apixaban (ELIQUIS) 5 mg Tab tabletIndications :Encounter for general adult medical examination without abnormal findings Take 5 mg by mouth 2 (two) times daily. Active calcium carbonate-vitamin D3 (CALTRATE-D) 600 mg-10 mcg (400 unit) Tab Take 1 tablet by mouth daily. Active cyanocobalamin (VITAMIN B-12) 1000 MCG tablet Take 1,000 mcg by mouth daily. Active bisoprolol-hydroC HLOROthiazide (ZIAC) 5-6.25 mg per tabletIndications :Primary hypertension Take 1 tablet by mouth daily. 90 tablet 3 06/04/2023 Active lisinopriL (PRINIVIL,ZESTRIL ) 5 MG tabletIndications :Primary hypertension Take 1 tablet (5 mg total) by mouth daily. 90 tablet 3 06/04/2023 Active Active Problems Problem Noted Date Diagnosed Date Symptomatic PVCs 06/18/2022 Encounter for general adult medical examination without abnormal findings 06/16/2022 Palpitations 06/20/2021 Primary hypertension 06/20/2021 Type 2 diabetes mellitus 06/20/2021 Ventricular premature depolarization 06/20/2021 Morbid obesity 06/22/2020 Family History Medical History Relation Name Comments Heart attack Father Hypertension Father Heart attack Maternal Grandmother Hypertension Maternal Grandmother Heart attack Paternal Grandfather Heart attack Paternal Grandmother Relation Name Status Comments Father Maternal Grandmother Paternal Grandfather Paternal Grandmother Social History Tobacco Use Types Packs/Day Years Used Date Smoking Tobacco: Never Smokeless Tobacco: Never Alcohol Use Standard Drinks/Week Comments Never 0 (1 standard drink = 0.6 oz pur e alcohol) no caffeine use Interpersonal Safety Answer Date Record ed Family or friends hurt you Not on file 07/26 Family or friends insult you Not on file Family or friends threaten you Not on file 0 07/26/2023 Family or friends scream or curse at you Not on file 07/26/2023 Housing Stability Answer Date Recorded Living situation today Not on file Living situation problems Not on file 2023 Food Insecurity Answer Date Recorded Food run out past 12 months Not on file 07/08 Food did not last past 12 months Not on file 07/26/2023 Employment Answer Date Recorded Help finding and keeping a job Not on file 0 07/26/2023 Family and Community Support Answer Kevin e Recorded Help with Day to Day Activities Not on file 07/26/2023 Feeling Lonely or Isolated Not on file 07/26 Educational Attainment Answer Date Shun rded Speak language other than Japanese at home Not on file 07/26/2023 Want help with school or training Not on file 07/26/2023 Depression Answer Date Recorded PHQ-2 Risk Not on file 07/26/2023 Disabilities Answer Date Recorded Difficulty concentrating Not on file 024 Difficulty doing errands alone Not on file 0 07/26/2023 Substance Use Answer Date Recorded Used prescription meds for non-medical reasons N ot on file 07/26/2023 Used illegal drugs past 12 months Not on file 07/26/2023 Comments Unknown Sex and Gender Information Value Date Recorded Sex Assigned at Not on file Legal Sex Female 5:03 PM CDT Gender Identity Not on file Sexual Orientation Not on file Last Filed Vital Signs Vital Sign Reading Time Taken Comments Blood Pressure 117/75 06/19/2022 1:24 PM EST Pulse 57 06/19/2022 1:24 PM EST Temperature - - Respiratory Rate - - Oxygen Saturation - - Inhaled Oxygen Concentration - - Weight 149.1 kg (328 lb 9.6 oz) 06/19/2022 1:24 PM EST Height 162.6 cm (5' 4 ) 06/19/2022 1:24 PM EST Body Mass Index 56.4 06/19/2022 1:24 PM EST Plan of Treatment Health Maintenance Due Date Last Done Comments CT Colonography 1975 Colonoscopy 1976 Colorectal Cancer Screening 1975 Diabetic Kidney Health Evaluation (KED) 1976 FOBT/FIT 1976 Fit-DNA (Cologuard) 1976 Sigmoidoscopy 1976 Diabetic Eye Exam 02/17/1986 Diabetic foot exam 02/17/1986 Depression Screening (12+) 1988 HIV Screening 02/17/1991 Hepatitis C Screening 02/17/1994 DTAP/TDAP/TD VACCINES (1 - Tdap) 02/17/1995 Pap Smear 02/17/1997 Breast Cancer Screening 2016 Pneumococcal Vaccine: 0-49 Years (2 of 2 - PCV) 201909/20/2018 Lipid Panel 02/17/2021 Hemoglobin A1C 06/16/2022 Tobacco Cessation Counseling and Screening (12+) 06/1906/19/2022 COVID-19 VACCINE ( - season) 2024 Influenza Vaccine (Season Ended) 2025 Insurance BLUE CROSS/BLUE SHIELD Care Teams Geriatrician Relationship Specialty Start Date End Date Nathen Pappas MD [address] [place] [address] PCP - General Family Medicine 06/19/22
--- OUTSIDE RECORDS SUMMARY | 2024-12-30 08:16 | XMS_ITS | Referral Summary ---
Author Organization [employer] Address [address] [place] [address] Care Team Providers Care Product Safety Compliance Leader Name Role Phone Nathen Pappas MD Primary Care Provider [phone] Allergies Active Allergy Reactions Criticality Noted Date [...] Ventricular premature depolarization 06/20/2021 Morbid obesity 06/22/2020 Social History Tobacco Use Types Packs/Day Years [...] Date Shun rded Speak language other than Trinidadian at home Not on file 07/26/2023 Want [...] 06/19/2022 1:24 PM EST Plan of Treatment Not on file Insurance BLUE CROSS/BLUE SHIELD Care Teams Product Safety Compliance Leader Relationship Specialty Start Date End Date Nathen Pappas MD [address] [place], [place] [address] PCP - General Family Medicine 06/19/22
--- OUTSIDE RECORDS SUMMARY | 2024-12-30 08:17 | XMS_ITS | Clinical Summary ---
Author Organization Healthcare Address [address] [place] [address] Care Team Providers Care Manager Latin Name Role Phone Nathen Pappas MD Primary Care Provider [phone] Sky Franz MD Unavailable [phone] Allergies Active Allergy Reactions Criticality Noted Date Comments Hydrocodone-Acetaminophen Other - please document in the comment field Low 03/31/2018 Medications Eliquis 2.5 MG tablet 05/14/2021 Active bisoprolol-hydro CHLOROthiazide (Ziac) 5-6.25 MG tablet 1 tab(s) orally once a day Active escitalopram (Lexapro) 20 MG tablet 05/14/2021 Active lisinopril 5 MG tablet 05/14/2021 Active omeprazole (PriLOSEC) [address] capsule 1 cap(s) orally once a day Active cholecalciferol (Vitamin D3) 25 MCG (1000 UT) tablet Take 1,000 Units by mouth 1 (one) time each day. 5 times a day Active calcium-vitamin D 500-200 MG-UNIT tablet Take 1 tablet by mouth 1 (one) time each day. 600 mg 2 times daily Active semaglutide (Ozempic, 0.25 or 0.5 MG/DOSE,) 2 MG/1.5ML solution pen-injector inj. pen 09/10/2023 Active Immunizations Immunization Administration Dates Next Due Pneumococcal Polysaccharide PPV23 09/20/2018 Family History Medical History Relation Name Comments Uterine cancer Paternal Grandmother FH: u terine cancer Relation Name Status Comments Paternal Grandmother Social History Tobacco Use Types Packs/Day Years Used Date Smoking Tobacco: Never Smokeless Tobacco: Never Tobacco Cessation:Counseling Given: Not Answered Alcohol Use Standard Drinks/Week Comments Yes 0 (1 standard drink = 0.6 oz pur e alcohol) rarely PHQ-2 Answer Date Recorded Patient Health Questionnaire-2 Score 0 11/20/2021 Comments Unknown Sex and Gender Information Value Date Recorded Sex Assigned at Not on file Legal Sex Female 6:47 PM EDT Gender Identity Not on file Sexual Orientation Not on file Last Filed Vital Signs Vital Sign Reading Time Taken Comments Blood Pressure 107/71 11/18/2023 10:41 AM EDT Pulse 69 11/18/2023 10:41 AM EDT Temperature 36.6 C (97.9 F) 11/18/2023 10:41 AM EDT Respiratory Rate 16 11/18/2023 10:41 AM EDT Oxygen Saturation 97% 11/18/2023 10:41 AM EDT Inhaled Oxygen Concentration - - Weight 140 kg (307 lb 8.7 oz) 11/18/2023 10:41 A M EDT Height 160 cm (5' 3 ) 11/18/2023 10:41 AM EDT Body Mass Index 54.48 11/18/2023 10:41 AM EDT Plan of Treatment Health Maintenance Due Date Last Done Comments [facility]-HIV Screening 1975 [facility]-Hepatitis C Screening 1976 [facility]-Infant/Child/Adol SDOH Screenings 1976 [facility]- SDOH Screenings 02/17/1994 [facility]-Adult SDOH Screenings 02/17/1994 [facility]-DTaP,Tdap,and Td Vaccines (1 - Tdap) 02/17/1995 [facility]-Hepatitis B Vaccines (1 of 3 - 19+ 3-dose series) 02/17/1995 CT Colonography 02/17/2021 Colonoscopy 02/17/2021 FIT-DNA 02/17/2021 FIT 02/17/2021 FOBT 02/17/2021 Sigmoidoscopy 02/17/2021 [facility]-Colorectal Cancer Screening 02/17/2021 [facility]-Pap Smear 04/22/2021 04/22/2018 [facility]-Cervical Cancer Screening 04/22/2023 [facility]-HPV/Cotest 04/22/2023 04/22/2018 [facility]-Depression Screening 05/21/2023 05/21/2022, 11/05 [id number]-05 Vaccine ( season) 2024 05/13/2021, 10/08/2020 [facility]-Influenza Vaccine (Season Ended) 2025 [facility]-Zoster Vaccines (1 of 2) 02/17/2026 [facility]-Hepatitis A Vaccines Aged Out 06/18/2018 No longer eligible based on patient's age to complete this topic [facility]-Pneumococcal Vaccine: Pediatrics (0 to 5 Years) and At-Risk Patients (6 to 49 Years) Aged Out 09/20/2018 No longer eligible based on patient's age to complete this topic [facility]-Obesity Intervention Completed 024, 05/20/2023, 11/19/2022, Additional history exists HPV Vaccines Aged Out No longer eligi ble based on patient's age to complete this topic [facility]-HIB Vaccines Aged Out No longer e ligible based on patient's age to complete this topic [facility]-IPV Vaccines Aged Out No longer e ligible based on patient's age to complete this topic [facility]-Rotavirus Vaccines Aged Out No lo nger eligible based on patient's age to complete this topic Procedures Procedure Name Priority Date/Time Associated Diagnosis Comments CYTO DATA CONVERSION Routine 04/22/2018 12:00 AM EDT from Last 3 Months or Most Recently Relevant to Health Maintenance Results * Cytology (04/22/2018 12:00 AM EDT) 04/22/2018 04/22/2018 9:3 0 AM EDT Narrative [facility] - 04/23/2018 6:19 PM EDT [facility] MR #: [id number] [facility] [address] [place], [place] [address] 1975 (Age: 43) FW Collect Date: 04/22/2018 00:00 Receipt Date: 04/22/2018 09:30 Page 1 DEPARTMENT OF PATHOLOGY AND LABORATORY MEDICINE CYTOPATHOLOGY REPORT Email: [email or web address] ATTENDING MD/Practitioner: Aubrey Franz MD Service: [email or web address] Location: [facility] OTHER MD(S): Vivien Ya MD Reported: 04/23/2018 18:19 Collected: 04/22/2018 00:00 DIAGNOSIS RIGHT PROXIMAL TIBIAL LESION, CT GUIDED CORE BIOPSY WITH TOUCH PREPARATIONS: - 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 COMMENT The radiologic concern for aneurysmal bone cyst and/or giant cell tumor of bone is noted. The aspirate smears, cell block, and core biopsies consist of predominantly blood with rare fragments of bland fibrous tissue admixed with scattered morphologically unremarkable giant cells and chronic inflammatory cells with rare osteoid. Given the radiologic impression, the findings are most suggestive of an aneurysmal bone cyst. Of note, aneurysmal bone cysts can often be secondary to other processes, and an underlying lesion cannot be excluded. Clinical and radiologic correlation is recommended. There is no evidence of malignancy in sampled tissue. Electronically Signed Out Shane Monzon MD PROCEDURES/ADDENDA GROSS DESCRIPTION: Multiple red cores of friable tissue, all measuring less than 0.1 cm in diameter and ranging from 1.5 cm to 0.3 cm in length, entirely submitted in biowrap and/or cassette. CLINICAL INFORMATION: CLINICAL DIAGNOSIS Right proximal tibial lesion Core biopsy performed by: Dr. Ya Number of sticks: 7 Touch Prep performed by: Dr. Monzon/ [facility] Touch Prep # 1: Blood 2: Blood 3: Blood 4: Blood 5&7: Blood with rare giant cells 6: Blood Specimen was placed in formalin at 9:29 am in cytology, and then taken to histology at 4:30 pm where it received an additional 3 hours of formalin fixation. This service has been rendered in part by a resident. A pathologist has personally reviewed the slides/tissue and has rendered and is responsible for the diagnosis that appears on the report. 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 A pathologist has performed and is responsible for the reported pathologic evaluation. us Sky Franz MD LAB PATHOLOGY ORDERABLES Final Result [facility]QUEST from Last 3 Months or Most Recently Relevant to Health Maintenance Insurance ANTH Care Teams Manager Latin Relationship Specialty Start Date End Date Nathen Pappas MD [address] [place] [address] [address] [place] [address] PCP - General 11/20/21 Sky Franz MD [address] [place] [address] [address] [place] [address] Surgeon Orthopaedic Surgery 11/15/23
[2024-12-30] MEDS: diazePAM 2MG TABLET 2 MG PO (08:19)
[2024-12-30] MEDS: DEXAMETHASONE 4MG TABLET 10 MG PO (08:19)
[2024-12-30] MEDS: LIDOCAINE 5% TRANSDERMAL PATCH 1 EACH TD (08:20)
--- NOTE | 2024-12-30 08:34 | HMH.EDGENADL ---
Discharge Plan Disposition Patient Disposition: Home, Self-Care Prescriptions Prescriptions: New oxycodone 5 mg tablet 5 mg PO Q6H PRN (Reason: pain) Qty: 10 0RF dexamethasone 6 mg tablet 6 mg PO DAILY Qty: 5 0RF ondansetron 4 mg tablet,disintegrating 4 mg PO Q6H PRN (Reason: nausea and vomiting) Qty: 10 0RF No Action bisoprolol-hydrochlorothiazide 5-6.25M tablet 5 mg PO DAILY lisinopril 5 MG tablet 5 mg PO DAILY escitalopram oxalate 10 MG tablet 10 mg PO DAILY metformin 750 MG tablet extended release 24 hr 750 mg PO DAILY amoxicillin 500 MG tablet 500 mg PO BID 10 Days Qty: 20 0RF omeprazole 20 MG capsule,delayed release(DR/EC) 20 mg PO DAILY cholecalciferol (vitamin D3) 5,000 UNIT capsule 5,000 unit PO DAILY Ca-D3-mag gm-mzdw-upv-bill-bor 1 EACH tablet 1 each PO DAILY apixaban 5 MG tablets,dose pack 5 mg PO BID Qty: 60 5RF Referrals Follow up/Referrals: Juli Garcia APRN [Primary Care Provider, Medical] - See instructions Activity Restrictions/Add. Instructions Additional Instructions/Restrictions: Take steroid every other day for total of 3 more doses. Take Tylenol 1000 mg every 6 hours (4 times daily) and ibuprofen 400 mg every 6 hours (4 times daily) as needed with food and water to prevent GI upset and kidney damage. Also talk to your family doctor about referral to physical therapy for cervical and thoracic spinal physical therapy. I think you will get a significant amount of relief from this. If you have bowel or bladder dysfunction, right lower extremity symptoms, or any other concerns, return to the emergency department for further evaluation. Be sure to make sure you are checking your sugars while on the steroid to make sure they are not going excessively high. Clinical Impressions Clinical Impression: Cervical radiculopathy at C6 Print Language Print Language: Greek Discharge ED Provider: Erick Chapa General Adult HPI General Chief complaint: PAIN Stated complaint: neck, arm and hand pain, R side Time Seen by Provider: 12/30/24 07:54 Mode of Arrival: Ambulatory Source of Information: Patient Description of Symptoms (Recalled from ER Triage Doc. by RN): patient states she began having muscle spasms beginning in neck going down right arm and in between shoulder blades she reports it is a tingling sensation History of Present Illness HPI narrative: Please note that above description of symptoms, in this electronic medical record under categorization of recalled from ER triage doctor by RN are reflective of an initial nursing assessment, however, is not reflective of my full history and physical exam that was personally taken and clarified. Consequentially, this preceding description of symptoms, which may include the patient's categorized chief complaint in the EMR, do not reflect my personal clinical impression, and the ultimate description of history of present illness and patient stated complaints should be deferred to this section of the note. Unless stated otherwise or congruent with this section of the note, additional signs, symptoms, or incongruence should be interpreted as inaccurate with my clinical impression. Related Data Home Medications ?Medication ?Instructions ?Recorded ?Confirmed bisoprolol 5 5 mg PO DAILY Hypertension 01/13/18 11/14/18 mg-hydrochlorothiazide 6.25 mg tablet escitalopram oxalate 10 mg tablet 10 mg PO DAILY Anxiety 01/13/18 11/14/18 lisinopril 5 mg tablet 5 mg PO DAILY Hypertension 01/13/18 11/14/18 metformin 750 mg tablet,extended 750 mg PO DAILY Diabetes 01/13/18 11/14/18 release 24 hr calcium 600 mg-D3 20 mcg-magnesium 1 each PO DAILY Bone loss 11/14/18 11/14/18 50 ue-Yx-kqhpto-angela-boron tablet cholecalciferol (vitamin D3) 125 5,000 unit PO DAILY Supplement 11/14/18 11/14/18 mcg (5,000 unit) capsule omeprazole 20 mg capsule,delayed 20 mg PO DAILY stomach 11/14/18 11/14/18 release Previous Rx's ?Medication ?Instructions ?Recorded apixaban 5 mg (74 tabs) tablets in 5 mg PO BID ##60 11/15/18 a dose pack amoxicillin 500 mg tablet 500 mg PO BID 10 days #20 tabs 12/25/20 dexamethasone 6 mg tablet 6 mg PO DAILY #5 tabs 12/30/24 ondansetron 4 mg disintegrating 4 mg PO Q6H PRN nausea and 12/30/24 tablet vomiting #10 tabs oxycodone 5 mg tablet 5 mg PO Q6H PRN pain #10 tabs 12/30/24 Allergies Allergy/AdvReac Type Severity Reaction Status Date / Time hydrocodone (From Lortab) AdvReac Unknown Verified 03/15/21 13:12 allergy reaction [facility] Disclaimer: The information contained in this section may have been updated after the patient was seen, as this information can be updated by other users. 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 caffeine: No Have you lived/traveled outside US in past 30 days?: No Contact w/someone who lives/traveled outside US past 30 days?: No Exposure to someone with infectious disease in past 14 days?: No Do you have a fever (greater than 100.4 F or 38 C)?: No Have you tested positive for COVID-19?: No Exposed to someone with COVID-19 in past 14 days?: No Do you have a sore throat?: No Do you have a cough?: No Do you have any weakness?: No Do you have any diarrhea?: No Are you experiencing any unusual bleeding?: No Do you have any muscle aches/pain?: Yes Do you have any abdominal pain?: No Are you experiencing loss of taste or smell?: No Other Medical History Have you received the Flu Vaccine for this season: No Have you received the Pneumonia Vaccine: No ROS Obtained: Yes All systems reviewed & no additional complaints except as documented Physical Exam General General appearance: alert and in distress (secondary to pain) Head Head exam: atraumatic and normocephalic Eye Eye exam: Present normal appearance, PERRL and EOMI Neck Neck exam: Present normal inspection, full ROM, trachea midline and tenderness Respiratory Respiratory exam: Absent respiratory distress, wheezes, stridor, accessory muscle use or prolonged expiratory phase Cardiovascular Cardiovascular exam: Present other (Pulses equal symmetric in upper and lower extremities) Abdominal Exam Abdominal exam: Present soft; Absent distention, tenderness or pulsatile mass Extremities Exam Extremities exam: Absent edema Back Exam Back exam: Present tenderness (thoracic spine) Neurological Exam Neurological exam: Present alert, oriented X3 and CN II-XII intact; Absent motor sensory deficit Skin Skin exam: Present warm and dry; Absent diaphoresis or erythema Medical Decision Making Medical Records Medical records reviewed: Yes I reviewed the patient's medical records. Screening: Per USPSTF and CDC recommendations, given the prevalence of disease in our region, it is our hospital?s policy to screen for HIV and viral Hepatitis for all patients aged 18 and over and those with ongoing risk factors. Merrick Inquiry Pt receiving controlled substance: No Merrick was queried for this patient: No Vital Signs: 12/30/24 07:59 12/30/24 08:00 12/30/24 08:00 Temperature 98.4 F Temperature Source Oral Pulse Rate 73 71 Pulse Rate [Right Radial] 77 Respiratory Rate 18 Blood Pressure 155/85 H 128/85 Blood Pressure [Right Arm] 155/85 H Blood Pressure Mean Blood Pressure Mean [Right Arm] 108 Blood Pressure Source [Right Arm] Automatic Cuff Blood Pressure Position [Right Arm] Supine 02 Sat by Pulse Oximetry 97 98 96 Oxygen Delivery Method Room Air 12/30/24 08:15 12/30/24 08:30 12/30/24 09:00 Temperature Temperature Source Pulse Rate 61 68 69 Pulse Rate [Right Radial] Respiratory Rate 18 Blood Pressure 139/93 H 110/74 Blood Pressure [Right Arm] Blood Pressure Mean 86 Blood Pressure Mean [Right Arm] Blood Pressure Source [Right Arm] Blood Pressure Position [Right Arm] 02 Sat by Pulse Oximetry 100 97 98 Oxygen Delivery Method 12/30/24 09:30 12/30/24 10:09 Temperature Temperature Source Pulse Rate 67 Pulse Rate [Right Radial] Respiratory Rate 18 Blood Pressure 121/83 114/69 Blood Pressure [Right Arm] Blood Pressure Mean 95 85 Blood Pressure Mean [Right Arm] Blood Pressure Source [Right Arm] Blood Pressure Position [Right Arm] 02 Sat by Pulse Oximetry 98 Oxygen Delivery Method Orders (Tests/Meds): ED MEDICATIONS Discontinued Medications Generic Name Dose Route Start Last Admin Trade Name Kishan PRN Reason Stop Dose Admin Acetaminophen 1,000 mg 12/30/24 09:22 12/30/24 09:36 Acetaminophen 1,000mg/100ml Vial IV 12/30/24 09:23 1,000 mg ONCE ONE Administration Dexamethasone 10 mg 12/30/24 08:07 12/30/24 08:19 Dexamethasone 4mg Tablet PO 12/30/24 08:08 10 mg ONCE ONE Administration Diazepam 2 mg 12/30/24 08:07 12/30/24 08:19 Diazepam 2mg Tablet PO 12/30/24 08:08 2 mg ONCE ONE Administration Hydromorphone HCl 1 mg 12/30/24 09:22 12/30/24 09:36 Hydromorphone 2mg/Ml Syringe IV 12/30/24 09:23 1 mg ONCE ONE Administration Ketorolac Tromethamine 15 mg 12/30/24 09:22 12/30/24 09:36 Ketorolac 30mg/Ml Vial IV 12/30/24 09:23 15 mg ONCE ONE Administration Lidocaine 1 each 12/30/24 08:07 12/30/24 08:20 Lidocaine 5% Transdermal Patch TD 12/30/24 08:08 1 each ONCE ONE Administration Oxycodone/Acetaminophen 1 each 12/30/24 08:43 12/30/24 09:06 Oxycodone 5mg W/Apap 325mg Tablet PO 12/30/24 08:44 1 each ONCE ONE Administration ORDERS Category Date Time Status CT cervical spine wo con Stat Cat Scan 12/30/24 09:[address] thoracic spine wo con Stat Cat Scan 12/30/24 09:22 Taken HIV Combo Stat Lab 12/30/24 09:37 Received Hepatitis C Ab Qual. W/ RFX Stat Lab 12/30/24 09:37 Received Medical Decision Narrative: This a 49-year-old female presenting with neck pain. History of hypertension, hyperlipidemia, A-fib on Eliquis, type 2 diabetes. She states that she was at work yesterday, 12/29 when she turned her head quickly and felt an immediate shooting pain go down her right side of her neck near her right shoulder blade and down into her right hand in the 4th and 5th digits. Was mild in intensity at that time, did not bother her much. Into today, getting much worse. States that she has any pain with any movement of her right upper extremity primarily in right shoulder blade as well as half of third as well as 4th and 5th digits on her right hand. Tried taking a muscle relaxer at home, this did not help much. Also took 800 mg ibuprofen, this was about an hour prior to this visit and did not help much either. No bowel or bladder dysfunction, lower extremity complaints, left upper extremity complaints, falls, trauma, or any other concerns. History obtained with patient. On arrival, she is in obvious distress secondary to pain. Tenderness to her lower cervical/upper thoracic spine, but primarily in the soft tissues and paraspinal muscles. Also states that she has subjective sensation deficit in her 4th and 5th digits on her right hand traveling essentially from her axilla down into her hand. No motor deficits. Differential includes radiculopathy, neuropathy, radiculitis, among others. Patient was given oral Valium, oral Decadron and lidocaine patch. Patient placed in observation at 8:30 AMTo give meds and assess for improvement. Reevaluation around 9:30 AM, still tearful and pain. 1 mg Dilaudid was administered. Patient and family requesting imaging, this was obtained. On independent interpretation, degenerative disc disease, but no obvious large disc herniation, no bony abnormality or dislocation. Reevaluation around 1045, patient feeling much better, able to range her neck, but still having shooting pains when talking her chin to her chest. Pain is still there, but moderate in intensity instead of severe. States that she feels comfortable going home. Close return precautions were discussed. She voiced her understanding. Decadron to be sent to pharmacy to be taken every other day and she voiced her understanding on this as well. Oxycodone for breakthrough pain. Because patient at baseline without signs or symptoms of clinical decompensation, deemed appropriate for discharge. Results were relayed to patient who voiced understanding and were agreeable to outpatient management and follow up. I discussed my clinical impression with patient and answered all questions. At this time, the evidence for any other entities in the differential is insufficient to warrant any further testing or ED observation. This was explained as well. Advisory was given that persistent or worsening symptoms require further evaluation. I confirmed the understanding of this discussion. 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 Electronic asset protection lead of the spoken language may permit errors. Although I have reviewed the note, some errors may still exist. Critical Care Critical Care Time Critical Care Time: No
[2024-12-30] MEDS: OXYCODONE 5MG W/APAP 325MG TABLET 1 EACH PO (09:06)
--- NOTE | 2024-12-30 09:06 | PC.NURSE ---
pt c/o of pain and stating that she wants imaging. pt states she can not go to work like this. notified.
--- NOTE | 2024-12-30 09:22 | CT_ITS ---
FINAL REPORT TECHNIQUE: Thin section axial CT with sagittal reconstruction without contrast This study was performed with techniques to keep radiation doses as low as reasonably achievable, (ALARA). Individualized dose reduction techniques using automated exposure control or adjustment of mA and/or kV according to the patient''s size were employed. CLINICAL HISTORY: R c spine and T spine pain, radicular pain c6/c7 FINDINGS: Exam is significantly limited due to patient's body habitus. There is no fracture or malalignment. There is mild degenerative disc disease in the mid and lower cervical spine. No obvious canal stenosis or neuroforaminal narrowing is identified. IMPRESSION: No obvious significant disc disease or canal stenosis. Recommend MRI should symptoms persist. Reviewed, Interpreted and Dictated by Mahesh Ty MD Transcribed by Carolina Cotto Authenticated and . [facility]
--- NOTE | 2024-12-30 09:22 | CT_ITS ---
FINAL REPORT CLINICAL HISTORY: R c spine and T spine pain, radicular pain c6/c7 FINDINGS: CT THORACIC SPINE TECHNIQUE: Thin section axial CT with sagittal and coronal reconstructions This study was performed with techniques to keep radiation doses as low as reasonably achievable, (ALARA). Individualized dose reduction techniques using automated exposure control or adjustment of mA and/or kV according to the patient''s size were employed. There is mild diffuse disc disease. No bony canal stenosis is identified. The discs are poorly evaluated due to body habitus. No fracture identified. IMPRESSION: No bony canal stenosis. MRI is recommended if there is concern for cord abnormality or disc disease. Reviewed, Interpreted and Dictated by Mahesh Ty MD Transcribed by Carolina Cotto Authenticated and [facility]
[2024-12-30] MEDS: KETOROLAC 30MG/ML VIAL 15 MG IV (09:36)
[2024-12-30] MEDS: ACETAMINOPHEN 1,000MG/100ML VIAL 1000 MG IV (09:36)
[2024-12-30] MEDS: HYDROMORPHONE 2MG/ML SYRINGE 1 MG IV (09:36)
[2024-12-30 11:13] LABS: HIV Combo NEGATIVE (Negative)
[2024-12-30 11:22] LABS: Hepatitis C Ab Qual. W/ RFX NEGATIVE (Negative)
== END 2024-12-30 11:20 | disposition home or self-care (01) ==
PROVIDERS: Emergency Provider Emergency Medicine; PCP Nurse Practitioner
DX: M54.12 Radiculopathy, cervical region (principal); M25.511 Pain in right shoulder; M79.601 Pain in right arm
CPT/HCPCS: 72125; 72128; 86803; 87389; 96374; 96375; 99285; J0131; J1171; J1885; J8540

== ENCOUNTER 2025-02-03 16:00 | Outpatient (RCR) | payer BC, SELFPAY | END 2025-02-03 23:59 | disposition home or self-care (01) | LOC: PT 16:00 | PROVIDERS: PCP Nurse Practitioner; Visit Provider Nurse Practitioner | DX: M75.41 Impingement syndrome of right shoulder (principal); M54.2 Cervicalgia | CPT/HCPCS: 97032; 97035; 97110; 97163 ==

== ENCOUNTER 2025-02-24 08:00 | Outpatient (RCR) | payer BC, SELFPAY | END 2025-02-24 23:59 | disposition home or self-care (01) | LOC: PT 08:00 | PROVIDERS: PCP Nurse Practitioner; Visit Provider Nurse Practitioner | DX: M54.2 Cervicalgia (principal); M75.41 Impingement syndrome of right shoulder | CPT/HCPCS: 97014; 97035; 97110; G0283 ==

== ENCOUNTER 2025-04-12 18:16 | Emergency (ER) | payer BC, SELFPAY ==
[2025-04-12 18:22] VITALS: BP 150/55; PULSE 80; RESP 18; TEMP 36.8; O2SAT 97; BMI 54.7
[2025-04-12 18:28] VITALS: BP 169/62
--- OUTSIDE RECORDS SUMMARY | 2025-04-12 18:29 | XMS_ITS | Clinical Summary ---
Author Organization [facility] ([place], [place], [place], [place]) Address [address] [place] [address] Care Team Providers Care Silk Screen Frame Assembler Name Role Phone Nathen Pappas MD Primary Care Provider [phone] Allergies Active Allergy Reactions Criticality Noted Date [...] oz pur e alcohol) no caffeine use Food Insecurity Answer Date Recorded Food run [...] Date Shun rded Speak language other than Luxembourgish at home Not on file 07/26/2023 Want help with school or training Not on file 07/26/2023 Substance Use Answer Date Recorded Used [...] 1976 Sigmoidoscopy 1976 Diabetic Eye Exam 02/17/1986 Depression Screening (12+) 1988 HIV Screening 02/17/1991 Hepatitis C Screening 02/17/1994 DTAP/TDAP/TD VACCINES (1 - Tdap) 02/17/1995 Pap Smear 02/17/1997 Breast Cancer Screening 2016 Pneumococcal Vaccine: 0-49 Years (2 of 2 - PCV) 201909/20/2018 Lipid Panel 02/17/2021 Hemoglobin A1C 06/16/2022 Tobacco Cessation Counseling and Screening (12+) 06/1906/19/2022 COVID-19 VACCINE (1 - 2023-25 season) 2025 Influenza Vaccine (#1) 2025 Insurance BLUE CROSS/BLUE SHIELD Care Teams Silk Screen Frame Assembler Relationship Specialty Start Date End Date Nathen Pappas MD [address] [place], [place] [id number] PCP - General Family Medicine 06/19/22
--- OUTSIDE RECORDS SUMMARY | 2025-04-12 18:29 | XMS_ITS | Clinical Summary ---
Author Organization Healthcare Address [address] [place] [address] Care Team Providers Care Drafter Automotive Design Name Role Phone Nathen Pappas MD Primary Care Provider [phone] Sky Franz MD Unavailable [phone] Allergies Active Allergy Reactions Criticality Noted Date [...] 04/22/2023 04/22/2018 [facility]-Depression Screening 05/21/2023 05/21/2022, 11/05 [id number] Vaccine ( season) 2025 05/13/2021, 10/08/2020 [facility]-Influenza Vaccine (#1) 2025 [facility]-Zoster Vaccines (1 of 2) 02/17/2026 [...] Narrative SUNQUEST - 04/23/2018 6:19 PM EDT [facility] MR #: [id number] [facility] [address] [place], [place] [address] 1975 (Age: 43) FW Collect Date: 04/22/2018 00:00 Receipt Date: 04/22/2018 09:30 Page 1 DEPARTMENT OF PATHOLOGY AND LABORATORY MEDICINE CYTOPATHOLOGY REPORT Email: [email or web address] [phone] ATTENDING MD/Practitioner: Aubrey Franz MD Service: [facility]ATA [...] 7 Touch Prep performed by: Dr. Monzon/ [facility] Touch Prep # 1: Blood 2: Blood [...] cyst, right lower leg F: A; C 46506, 17989, 77190, C 65677, 24375(5) SNOMED CODES: A; C75304 P1140 P5862 [id number] A resident has participated in this service. A pathologist has performed and is responsible for the reported pathologic evaluation. us Sky Franz MD LAB PATHOLOGY ORDERABLES Final Result SUNQUEST from Last 3 Months or Most Recently Relevant to Health Maintenance Insurance ANTH Care Teams Drafter Automotive Design Relationship Specialty Start Date End Date Nathen Pappas MD [address] [place] [address] [address] [place] [address] PCP - General 11/20/21 Sky Franz MD [address] [place] [address] [address] [place] [address] Surgeon Orthopaedic Surgery 11/15/23
--- OUTSIDE RECORDS SUMMARY | 2025-04-12 18:29 | XMS_ITS | Data Portability ---
Author Organization [facility] [place]IZA Gallegos ADMIN Address [address] [place] [id number] Care Team Providers Care Ripening Room Hand Name Role Phone SHANTE CONNOLLY Primary Care Provider Unavailab le SHANTE CONNOLLY Referring Provider Unavailable Assessment No assessment recorded. Plan of Treatment Reminders Order Date Submit Date Provider Last Modified By Organization Details Last Modified Time Details Appointments None record ed. Lab None record ed. Referral None record ed. Procedures None record ed. Surgeries None record ed. Imaging None record ed. Medication Orders None record ed. Patient TargetsNo targets recorded. Patient Instructions Encounter Date Encounter Id Patient Instructions Last Modified By Organization Details Last Modified Time 04/13/2024 [id number] Total time spent by TUBE KNITTER reviewing patient's chart, face to face with patient, counseling, answering all questions, concerns and documenting the encounter in the patient's EMR: 35 minutes [email or web address] Not available 04/14/2024 13:36:19 Reason for Referral None Reported. Medical Equipment None Reported. Allergies No known drug allergies Medications Name Sig Start Date Stop Date Status Note LastModified by Organization Details LastModified Time fluconazole 150 mg tablet 2023 completed Not Available Not Available Not Available Accu-Chek Softclix Lancets active Not Available Not Available Not Available bisoprolol 5 mg-hydrochloro thiazide 6.25 mg tablet active Not Available Not Available No t Available omeprazole 20 mg capsule,delaye d release active Not Available Not Available No t Available lisinopril 5 mg tablet active Not Available Not Available No t Available escitalopram 20 mg tablet active Not Available Not Available Not Available Calcium 600 active Not Available Not A vailable Not Available Eliquis 2.5 mg tablet active Not Available Not Available Not Available Accu-Chek Guide test strips active Not Available Not Available Not Available Rybelsus 14 mg tablet 2023 completed Not Available Not Available Not Available Ozempic 1 mg/dose (4 mg/3 mL) subcutaneous pen injector 2023 completed Not Available Not Available Not Available Ozempic 2 mg/dose (8 mg/3 mL) subcutaneous pen injector active Not Available Not Available Not Available Ozempic 0.25 mg or 0.5 mg (2 mg/3 mL) subcutaneous pen injector 2023 completed Not Available Not Available Not Available Vitals Date Recorded Body weight Body temperature Systolic And Diastolic Provider Name and Address Organization Details Last Updated DateTime 04/13/2024 319751.44 g 97.5 [degF] 124/66 mm[Hg] Lolis Wilde [facility] [place] 04/13/2024 16:06:31 Social History None recorded. 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 Family History Nothing Reported. Medical History No medical history recorded. Gynecological HistoryNo gynecological history recorded. Obstetrics History GPAL:G 0 P 0 0 0 0 Past Encounters Encounter ID Performer Location Encounter Start Date Encounter Closed Date Diagnosis/Indication Diagnosis SNOMED-CT Code Diagnosis ICD10 Code Diagnosis IMO Codes Diagnosis Note [id number] HUDSON BARONE NP [facility] [address] [place] [address] 04/13/2024 15:50:52 04/13/2024 16:31:38 Recurrent bleeding of nose 6705280908 102 R04.0 nasal exam unremarkab le w/ no areas of Keisselbac h's plexus appearing hyperemic. She will start implementi ng conservati ve measures by doing daily nasal saline sprays and nightly vaseline per each nare w/ use of humidifier in bedroom at night. Follow up in 6 weeks to assess progress or sooner if needed. May need cautery in the future.Anson raymond implementi ng current methods for active nosebleeds w/ 2 sprays of afrin then pinching right below nasal bridge w/ constant pressure until bleeding stops. advised her to report to nearest ED for any bleeds that are lasting over 20 minutes. Essential hypertension 38525379 I10 normal BP in office today. States her blood pressure has been well-contr olled for several years now on lisinopril . Explained to patient the importance of maintainin g normal BP as uncontroll ed BP can sometimes contribute to recurrent epistaxis. Long-term current use of anticoagulant [id number] Z79.01 She has been on eliquis since 2019 for DVT, PE prophylaxi s. She has been on her current dose of 2.5 mg of eliquis for several years now. Explained to patient this medication can put her at risk for recurrent epistaxis Health Concerns Section Related Observation LastModified by Organization Detai ls LastModified Time None Recorded Concern Status LastModified by Organization Details LastModified Time None Recorded Advance Directives Directive None Recorded Payers Insurance Date Sequence Insurance Name Policy Number Policy Richter Covered Member ID Richter Member ID Guarantor Name 04/16/2024 1 BELKIS-AL: KARISHMA TAMAYO [facility] [id number] Kelly Raza [id number] Kelly Raza Notes Date Note Type Note Provider Name and Address Organization Details Recorded Time 04/13/2024 text/html 04/13/24 - 49 year old female in office for recurring left side nose bleeds. Patient says she has always had nose bleeds on and off but February 03 2024 she was hit in the back of the head while on vacation by a wooden swing. Patient says the following Saturday morning she got up and had a nose bleed that lasted for an hour. Patient says she went to the hospital and performed CT of the head which was unremarkable, but they did not cauterize and vessels since her nose bleed eventually subsided after 30 minutes after placing a tampon up her nose. Patient says she has had about 5-6 since then. Patient is on Eliquis. Patient says to make the bleeding stop she squeezes her nose and uses two sprays of afrin w/ or w/o using a tampon as packing which stops the bleeding. Patient says the nose bleeds she has been having since the bigger one lasts for about 30 minutes. Patient says she can smell fine and breathe okay. Patient does not use nasal sprays. Patient does not use a humidifier or use of vaseline up her nose. She reports occasional use of saline spray. Reports she is most likely to have a nose bleed when she feels like the inside of her nose is dry which she attributes to sleeping with a box fan in her room. HUDSON BARONE, JOHN [address], [place], [address], [facility] [place] & [place] 04/14/2024 13:38:02 OBGyn Episode No OBEpisode recorded.
--- OUTSIDE RECORDS SUMMARY | 2025-04-12 18:29 | XMS_ITS | Referral Summary ---
Author Organization [employer] [employer] ([place], [place], [place], [place]) Address [address] [place] [address] Care Team Providers Care Funds Transfer Clerk Name Role Phone Nathen Pappas MD Primary Care Provider [phone] Allergies Active Allergy Reactions Criticality Noted Date [...] Date Shun rded Speak language other than Mongolian at home Not on file 07/26/2023 Want [...] file Insurance BLUE CROSS/BLUE SHIELD Care Teams Funds Transfer Clerk Relationship Specialty Start Date End Date Nathen Pappas MD [address] [place] [address] PCP - General Family Medicine 06/19/22
--- NOTE | 2025-04-12 18:33 | ED_ITS ---
<Statement entered by Ramu Werner MD - 04/12/25 19:25> I was consulted by the MILEY, and we discussed the complexity of the problems being addressed. I approve the treatment and management plan for this patient's care in the emergency department, thus performing a substantive portion of the medical decision making. Ramu Werner MD Discharge Plan Disposition Patient Disposition: Home, Self-Care Prescriptions Prescriptions: New clindamycin HCl [Cleocin HCl] 300 mg capsule 300 mg PO Q12H 7 Days Qty: 14 0RF No Action bisoprolol-hydrochlorothiazide 5-6.25M tablet 5 mg PO DAILY lisinopril 5 MG tablet 5 mg PO DAILY escitalopram oxalate 10 MG tablet 10 mg PO DAILY metformin 750 MG tablet extended release 24 hr 750 mg PO DAILY amoxicillin 500 MG tablet 500 mg PO BID 10 Days Qty: 20 0RF oxycodone 5 mg tablet 5 mg PO Q6H PRN (Reason: pain) Qty: 10 0RF dexamethasone 6 mg tablet 6 mg PO DAILY Qty: 5 0RF ondansetron 4 mg tablet,disintegrating 4 mg PO Q6H PRN (Reason: nausea and vomiting) Qty: 10 0RF omeprazole 20 MG capsule,delayed release(DR/EC) 20 mg PO DAILY cholecalciferol (vitamin D3) 5,000 UNIT capsule 5,000 unit PO DAILY Ca-D3-mag zc-flrq-djn-bill-bor 1 EACH tablet 1 each PO DAILY apixaban 5 MG tablets,dose pack 5 mg PO BID Qty: 60 5RF Referrals Follow up/Referrals: Radha (ED)Juli APRN [Primary Care Provider, Emergency Medicine] - See instructions Activity Restrictions/Add. Instructions Additional Instructions/Restrictions: May wash with soap and water. Keep dressing on it as it will drain some take antibiotics as directed. Please see PCP or Saturday. Clinical Impressions Clinical Impression: Cellulitis Instructions Patient Instructions: Cellulitis, DI for Skin Abscess Print Language Print Language: German Discharge ED Provider: Ramu Werner General Adult HPI <Juli Garcia (ED), CREATIVE RESOURCE MANAGER - Last Filed: 04/12/25 19:07> General Chief complaint: Skin/Abscess/Foreign Body Stated complaint: boil on inside of L thigh Time Seen by Provider: 10/06/25 18:26 Mode of Arrival: Ambulatory Source of Information: Patient Description of Symptoms (Recalled from ER Triage Doc. by RN): patient presents to the ED for a boil on her inner thighs. patient states it is really painful and she noticed it 4 days ago. History of Present Illness HPI narrative: 50-year-old female presents to the ED today with complaint of a boil on her left inner thigh. She noticed it 4 days ago. It has been becoming more red and irritated. She has no fevers or chills. No nausea, vomiting or diarrhea. No other symptoms. Typically she can get rid of these on her own. She has been putting warm compresses on them. No other problems or concerns Related Data Home Medications ?Medication ?Instructions ?Recorded ?Confirmed bisoprolol 5 5 mg PO DAILY Hypertension 0 01/13/18 11/14/18 mg-hydrochlorothiazide 6.25 mg tablet escitalopram oxalate 10 mg tablet 10 mg PO DAILY Anxie ty 01/13/18 11/14/18 lisinopril 5 mg tablet 5 mg PO DAILY Hypertension 0 01/13/18 11/14/18 metformin 750 mg tablet,extended 750 mg PO DAILY Diabe elen 01/13/18 11/14/18 release 24 hr calcium 600 mg-D3 20 mcg-magnesium 1 each PO DAILY Bon e loss 11/14/18 11/14/18 51 yn-Zy-vhejmb-angela-boron tablet cholecalciferol (vitamin D3) 125 5,000 unit PO DAILY S upplement 11/14/18 11/14/18 mcg (5,000 unit) capsule omeprazole 20 mg capsule,delayed 20 mg PO DAILY stomac h 11/14/18 11/14/18 release Previous Rx's ?Medication ?Instructions ?Recorded apixaban 5 mg (74 tabs) tablets in 5 mg PO BID ##60 a dose pack amoxicillin 500 mg tablet 500 mg PO BID 10 days #20 ta bs 12/25/20 dexamethasone 6 mg tablet 6 mg PO DAILY #5 tabs ondansetron 4 mg disintegrating 4 mg PO Q6H PRN nausea and 12/30/24 tablet vomiting #10 tabs oxycodone 5 mg tablet 5 mg PO Q6H PRN pain #10 tab s 12/30/24 clindamycin HCl 300 mg capsule 300 mg PO Q12H 7 days # 14 caps 04/12/25 (Cleocin HCl) Allergies Allergy/AdvReac Type Severity Reaction Status Date / Time hydrocodone (From Lortab) AdvReac Unknown Verified 03/15/21 13:12 allergy reaction PFSH <Juli Garcia (ED), CREATIVE RESOURCE MANAGER - Last Filed: 04/12/25 19:07> [facility] Disclaimer: The information contained in this section may have been updated after the patient was seen, as this information can be updated by other users. 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 [employer] caffeine: No Have you lived/traveled outside US in past 30 days?: No Contact w/someone who lives/traveled outside US past 30 days?: No Exposure to someone with infectious disease in past 14 days?: No Do you have a fever (greater than 100.4 F or 38 C)?: No Have you tested positive for COVID-19?: No Exposed to someone with COVID-19 in past 14 days?: No Do you have a sore throat?: No Do you have a cough?: No Do you have any weakness?: No Do you have any diarrhea?: No Are you experiencing any unusual bleeding?: No Do you have any muscle aches/pain?: No Do you have any abdominal pain?: No Are you experiencing loss of taste or smell?: No Other Medical History Have you received the Flu Vaccine for this season: No Have you received the Pneumonia Vaccine: No <Juli Garcia (ED), CREATIVE RESOURCE MANAGER - Last Filed: 04/12/25 19:07> ROS Obtained: Yes Systems reviewed as appropriate & no additional complaints except as documented Constitutional Constitutional: Reports as per HPI Physical Exam <Juli Garcia (ED), CREATIVE RESOURCE MANAGER - Last Filed: 04/12/25 19:07> General General appearance: alert Head Head exam: normocephalic Eye Eye exam: Present PERRL and EOMI ENT ENT exam: Present normal oropharynx and mucous membranes moist Neck Neck exam: Present full ROM and trachea midline Respiratory Respiratory exam: Present normal lung sounds bilaterally Cardiovascular Cardiovascular exam: Present regular rate, normal rhythm, normal heart sounds, +S1 and +S2 Extremities Exam Extremities exam: Present tenderness (Left inside of thigh with erythema, tender, discoloration ) and normal capillary refill Neurological Exam Neurological exam: Present alert, oriented X3 and normal gait Skin Skin exam: Present warm, dry and erythema Medical Decision Making <Juli Garcia (NAPOLEON), CREATIVE RESOURCE MANAGER - Last Filed: 04/12/25 19:07> Medical Records Screening: Per USPSTF and CDC recommendations, given the prevalence of disease in our region, it is our hospital?s policy to screen for HIV and viral Hepatitis for all patients aged 18 and over and those with ongoing risk factors. Merrick Inquiry Pt receiving controlled substance: No Merrick was queried for this patient: No Vital Signs: 04/12/25 18:22 04/12/25 18:28 04/12/25 18:36 Temperature 98.2 F 98.5 F Temperature Source Oral Oral Pulse Rate [Right Radial] 80 80 Respiratory Rate 18 18 Blood Pressure 169/62 H Blood Pressure [Right Arm] 150/55 H 169/62 H Blood Pressure Mean 82 Blood Pressure Mean [Right Arm] 86 97 Blood Pressure Source [Right Arm] Automatic Cuff Blood Pressure Position [Right Arm] Sitting 02 Sat by Pulse Oximetry 97 95 Oxygen Delivery Method Room Air Orders (Tests/Meds): ED MEDICATIONS Discontinued Medications Generic Name Dose Route Start Last Admin Trade Name Freq PRN Reason Stop Dose Admin Clindamycin HCl 300 mg 04/12/25 19:06 Clindamycin 150mg Capsule PO 04/12/25 19:07 ONCE ONE Lidocaine/Epinephrine 10 ml 04/12/25 18:31 04/12/25 18:54 Lidocaine 1% W/Epi 1:100,000 20ml Vial SQ 04/12/25 18:32 10 ml ONCE ONE Administration ORDERS Category Date Time Status POCUS Point of Care (ER Only) Stat Exams 04/12/25 18:36 Ordered Medical Decision Narrative: patient is a 50-year-old female presenting to the emergency department for evaluation of boil, erythema to her left inner thigh. Patient is hemodynamically stable and nontoxic-appearing upon arrival, afebrile. Differential diagnosis includes boil. Workup will be conducted with hematologic labs, specific imaging. Initial inventions include POCUS. <Ramu Werner MD - Last Filed: 04/12/25 19:20> Vital Signs: 04/12/25 18:22 04/12/25 18:28 04/12/25 18:36 Temperature 98.2 F 98.5 F Temperature Source Oral Oral Pulse Rate [Right Radial] 80 80 Respiratory Rate 18 18 Blood Pressure 169/62 H Blood Pressure [Right Arm] 150/55 H 169/62 H Blood Pressure Mean 82 Blood Pressure Mean [Right Arm] 86 97 Blood Pressure Source [Right Arm] Automatic Cuff Blood Pressure Position [Right Arm] Sitting 02 Sat by Pulse Oximetry 97 95 Oxygen Delivery Method Room Air Orders (Tests/Meds): ED MEDICATIONS Discontinued Medications Generic Name Dose Route Start Last Admin Trade Name Freq PRN Reason Stop Dose Admin Clindamycin HCl 300 mg 04/12/25 19:06 Clindamycin 150mg Capsule PO 04/12/25 19:07 ONCE ONE Lidocaine/Epinephrine 10 ml 04/12/25 18:31 04/12/25 18:54 Lidocaine 1% W/Epi 1:100,000 20ml Vial SQ 04/12/25 18:32 10 ml ONCE ONE Administration ORDERS Category Date Time Status POCUS Point of Care (ER Only) Stat Exams 04/12/25 18:36 Ordered Procedures <Juli Garcia (ED), CREATIVE RESOURCE MANAGER - Last Filed: 04/12/25 19:07> Abscess I/D Site: lower extremity Side (if applicable): left Sedation/analgesia: none Local Anesthetic: lidocaine 2% and with epi Amount of anesthesia used (mL): 8 Technique: needle aspiration Amount of fluid expressed (mL): 30 Irrigation: No Packing used?: none <Ramu Werner MD - Last Filed: 04/12/25 19:20> Limited Ultrasound Interpretation:: Limited MSK/soft tissue ultrasound Indication: Soft tissue swelling and redness Identified structures: Location: Left medial thigh Findings: Loculated 1x2cm abscess and cobblestoning to suggest cellulitis Impression: Abscess of soft tissue with cellulitis Images were saved to permanent archive The study was technically adequate Soft Tissue CPT Codes: CPT Lower Extremity: 79323-57 CPT Other Soft Tissue: 68716-89 This study was performed by me, Ramu Meehan, and I personally interpreted all images/videos. Based on my clinical judgement, these images were adequate and did not necessitate further imaging. Critical Care <Juli Garcia (ED), CREATIVE RESOURCE MANAGER - Last Filed: 04/12/25 19:07> Critical Care Time Critical Care Time: No
[2025-04-12 18:36] VITALS: BP 169/62; PULSE 80; RESP 18; TEMP 36.9; O2SAT 95; BMI 60.0
[2025-04-12] MEDS: LIDOCAINE 1% W/EPI 1:100,000 20ML VIAL 10 ML SQ (18:54)
[2025-04-12] MEDS: CLINDAMYCIN 150MG CAPSULE 300 MG PO (19:35)
[2025-04-12 19:42] VITALS: BP 169/62; PULSE 75; RESP 16; TEMP 36.9; O2SAT 98
== END 2025-04-12 19:43 | disposition home or self-care (01) ==
PROVIDERS: Emergency Provider Student in an Organized Health Care Education/Training Program; PCP Nurse Practitioner
DX: L03.116 Cellulitis of left lower limb (principal); M79.652 Pain in left thigh
CPT/HCPCS: 99283; 99284; J2004